=== PATIENT | male | born 1955 | race Caucasian/White ===

== ENCOUNTER → 2020-03-27 14:43 | Outpatient (CLI) | payer MEDICARE, SELFPAY ==
[2020-03-27 15:55] LABS: Hematocrit 44.1 % (40-54); Hemoglobin 15.2 g/dL (13.0-16.5)
[2020-03-31 09:07] LABS: Testosterone, Free 25.47 ng/dL (5.00-21.00)
[2020-03-31 09:33] LABS: Testosterone, % Free 3.41 % (1.50-4.20); Testosterone, Total 747 ng/dL (264-916)
== END ==
DX: E29.1 Testicular hypofunction (principal)
CPT/HCPCS: 36415; 84402; 84403; 85014; 85018

== ENCOUNTER → 2020-07-09 13:54 | Outpatient (CLI) | payer MEDICARE, SELFPAY ==
[2020-07-09 15:37] LABS: Hematocrit 45.3 % (40-54); Hemoglobin 15.6 g/dL (13.0-16.5)
[2020-07-14 08:08] LABS: Testosterone, Free 13.52 ng/dL (5.00-21.00)
[2020-07-14 15:18] LABS: Testosterone, % Free 2.57 % (1.50-4.20); Testosterone, Total 526 ng/dL (264-916)
== END ==
DX: E29.1 Testicular hypofunction (principal)
CPT/HCPCS: 36415; 84402; 84403; 85014; 85018

== ENCOUNTER → 2020-10-12 09:09 | Outpatient (CLI) | payer MEDICARE, SELFPAY ==
[2020-10-12 10:08] LABS: Hemoglobin 16.8 g/dL (13.0-16.5)
[2020-10-15 12:08] LABS: Testosterone, Free 28.56 ng/dL (5.00-21.00)
[2020-10-15 18:02] LABS: Testosterone, % Free 4.32 % (1.50-4.20); Testosterone, Total 661 ng/dL (264-916)
== END ==
DX: E29.1 Testicular hypofunction (principal)
CPT/HCPCS: 36415; 84402; 84403; 85014; 85018

== ENCOUNTER → 2021-02-15 09:11 | Outpatient (CLI) | payer MEDICARE, SELFPAY ==
[2021-02-15 09:46] LABS: Hematocrit 46.7 % (40-54)
[2021-02-15 10:27] LABS: Hemoglobin A1c 5.8 % (3.8-5.6)
[2021-02-15 10:33] LABS: PSA,Total - Annual Screen 1.98 ng/mL (0.00-4.00)
[2021-02-18 11:09] LABS: Testosterone, Free 23.64 ng/dL (5.00-21.00)
[2021-02-18 14:19] LABS: Testosterone, % Free 4.09 % (1.50-4.20); Testosterone, Total 578 ng/dL (264-916)
== END ==
DX: E29.1 Testicular hypofunction (principal); R73.09 Other abnormal glucose; Z12.5 Encounter for screening for malignant neoplasm of prostate
CPT/HCPCS: 36415; 83036; 84153; 84402; 84403; 85014; G0103

== ENCOUNTER → 2021-08-20 15:03 | Outpatient (CLI) | payer MEDICARE, SELFPAY ==
[2021-08-20 16:15] LABS: Hematocrit 46.2 % (40-54); Hemoglobin 16.2 g/dL (13.0-16.5)
[2021-08-25 11:09] LABS: Testosterone, Free 20.18 ng/dL (5.00-21.00)
[2021-08-25 12:31] LABS: Testosterone, % Free 4.17 % (1.50-4.20); Testosterone, Total 484 ng/dL (264-916)
== END ==
DX: E29.1 Testicular hypofunction (principal)
CPT/HCPCS: 36415; 84402; 84403; 85014; 85018

== ENCOUNTER → 2022-02-16 | Outpatient (CLI) | payer MEDICARE, SELFPAY ==
[2022-02-16 15:10] LABS: Hematocrit 45.8 % (40-54); Hemoglobin 15.8 g/dL (13.0-16.5)
[2022-02-26 14:09] LABS: Testosterone, Free 20.62 ng/dL (5.00-21.00)
[2022-02-27 11:26] LABS: Testosterone, % Free 3.37 % (1.50-4.20); Testosterone, Total 612 ng/dL (264-916)
== END | disposition home or self-care (01) ==
LOC: LAB 13:41
DX: E29.1 Testicular hypofunction (principal)
CPT/HCPCS: 36415; 84402; 84403; 85014; 85018

== ENCOUNTER → 2022-08-31 | Outpatient (CLI) | payer MEDICARE, SELFPAY ==
[2022-08-31 14:48] LABS: Hematocrit 45.6 % (40-54); Hemoglobin 15.7 g/dL (13.0-16.5)
[2022-08-31 15:23] LABS: PSA,Total - Annual Screen 2.68 ng/mL (0.00-4.00)
[2022-09-07 12:09] LABS: Testosterone, % Free 2.29 % (1.50-4.20); Testosterone, Total 524 ng/dL (264-916)
== END | disposition home or self-care (01) ==
DX: E29.1 Testicular hypofunction (principal); Z12.5 Encounter for screening for malignant neoplasm of prostate
CPT/HCPCS: 36415; 84153; 84402; 84403; 85014; 85018; G0103

== ENCOUNTER → 2023-03-08 | Outpatient (CLI) | payer MEDICARE, SELFPAY ==
[2023-03-08 15:54] LABS: Hematocrit 43.7 % (40-54); Hemoglobin 14.9 g/dL (13.0-16.5)
[2023-03-08 16:16] LABS: PSA,Total - Annual Screen 3.43 ng/mL (0.00-4.00)
[2023-03-13 12:08] LABS: Testosterone, % Free 3.59 % (1.50-4.20); Testosterone, Free 13.75 ng/dL (5.00-21.00); Testosterone, Total 383 ng/dL (264-916)
== END | disposition home or self-care (01) ==
DX: E29.1 Testicular hypofunction (principal); Z12.5 Encounter for screening for malignant neoplasm of prostate
CPT/HCPCS: 36415; 84153; 84402; 84403; 85014; 85018; G0103

== ENCOUNTER → 2024-05-29 | Outpatient (CLI) | payer MEDICARE, SELFPAY ==
[2024-05-29 16:46] LABS: Hematocrit 45.7 % (40-54); Hemoglobin 15.9 g/dL (13.0-16.5)
[2024-05-29 17:25] LABS: Estradiol 49.1 pg/mL
[2024-06-04 12:08] LABS: Testosterone, % Free 4.01 % (1.50-4.20); Testosterone, Free 22.86 ng/dL (5.00-21.00); Testosterone, Total 570 ng/dL (264-916)
== END | disposition home or self-care (01) ==
LOC: LAB 16:13
DX: E29.1 Testicular hypofunction (principal)
CPT/HCPCS: 36415; 82670; 84402; 84403; 85014; 85018

== ENCOUNTER → 2024-08-20 | Outpatient (CLI) | payer MEDICARE, SELFPAY ==
[2024-08-20] MEDS: Zaleplon 5 MG Capsule 10 MG PO (21:30)
== END | disposition home or self-care (01) ==
PROVIDERS: Referring Provider Nurse Practitioner Family; Visit Provider Nurse Practitioner Family
DX: G47.33 Obstructive sleep apnea (adult) (pediatric) (principal)
CPT/HCPCS: 95811

== ENCOUNTER → 2024-12-04 | Outpatient (CLI) | payer MEDICARE, SELFPAY ==
[2024-12-04 16:15] LABS: Hematocrit 44.3 % (40-54); Hemoglobin 16.0 g/dL (13.0-16.5)
[2024-12-04 17:05] LABS: PSA,Total - Annual Screen 2.31 ng/mL (0.02-4.00)
== END | disposition home or self-care (01) ==
LOC: LAB 15:42
DX: Z12.5 Encounter for screening for malignant neoplasm of prostate (principal); E29.1 Testicular hypofunction
CPT/HCPCS: 36415; 82670; 84153; 84403; 85014; 85018; G0103

== ENCOUNTER → 2025-01-17 | Outpatient (CLI) | payer MEDICARE, SELFPAY ==
--- NOTE | 2025-01-17 13:57 | ECHOD_ITS ---
Reason For Study Reason For Study: MURMUR Procedure This was a 2D Doppler, Color Flow transthoracic echocardiogram. Exam performed in department. Left Ventricle Normal LV size. Moderate concentric left ventricular hypertrophy. Left ventricular systolic function is normal. The left ventricular ejection fraction is 65 %. No regional wall motion abnormalities noted. Right Ventricle Normal RV size. Normal systolic function. Atria Normal left atrium. Normal right atrium. Mitral Valve Normal mitral valve. Tricuspid Valve Normal tricuspid valve. Mild (1+) tricuspid valve insufficiency. Pulmonary artery systolic pressure is 30 mmHg. Aortic Valve Trisinus/trileaflet aortic valve. Great Vessels Normal aortic root. The pulmonary artery is normal size. Inferior vena cava collapse with respiration. Pericardium/Pleural No pericardial effusion. MMode/2D Measurements & Calculations LVIDd: 4.6 cm IVSd: 1.5 cm CO(Teich): 3.9 l/min LVIDs: 3.2 cm LVPWd: 1.5 cm FS: 29.9 % Ao root diam: 3.5 cm LAV(MOD-bp): 36.4 ml LVAd ap4: 34.5 cm2 LAV(MOD-bp) Indexed: 16.5 ml/m2 LVLd ap4: 9.2 cm LAV(MOD-sp2): 37.8 ml EDV(MOD-sp4): 109.9 ml LAV(MOD-sp4): 35.9 ml EDV(sp4-el): 109.8 ml LVAs ap4: 18.3 cm2 LVLs ap4: 7.3 cm ESV(MOD-sp4): 40.1 ml ESV(sp4-el): 38.8 ml EF(MOD-sp4): 63.5 % EF(sp4-el): 64.7 % CO(MOD-sp4): 4.8 l/min SV(sp4-el): 71.0 ml SV(MOD-sp4): 69.8 ml LA A4 area: 14.6 cm2 SI(MOD-sp4): 31.5 ml/m2 LA dimension(2D): 4.1 cm RA A4 area: 21.1 cm2 Time Measurements MV dec time: 0.24 sec Doppler Measurements & Calculations MV E max laz: 85.3 cm/sec Lat Peak E' Laz: 8.9 cm/sec Med Peak E' Laz: 5.6 cm/sec MV A max laz: 100.3 cm/sec E/E' lat: 9.6 E/E' med: 15.2 MV E/A: 0.85 MV V2 max: 99.7 cm/sec Ao V2 max: 171.6 cm/sec MV max P.0 mmHg MV dec slope: 361.1 cm/sec2 Ao max P.8 mmHg MV V2 mean: 61.4 cm/sec Ao V2 mean: 114.9 cm/sec MV mean P.7 mmHg Ao mean P.1 mmHg MV V2 VTI: 35.4 cm Ao V2 VTI: 35.0 cm AV (velocity ratio): 0.79 LV V1 max: 129.7 cm/sec PA V2 max: 151.8 cm/sec TR max laz: 257.5 cm/sec LV V1 max P.7 mmHg PA V2 mean: 102.2 cm/sec TR max P.5 mmHg LV V1 mean P.2 mmHg LV V1 mean: 80.3 cm/sec LV V1 VTI: 27.5 cm ECHO/Echo Complete Interpretation Summary Normal LV size. Moderate concentric left ventricular hypertrophy. Left ventricular systolic function is normal. The left ventricular ejection fraction is 65 %. Pulmonary artery systolic pressure is 30 mmHg. Ordering Physician: XAVI HONG Referring Physician: XAVI HONG Performed By: Inés Avilez RCS
--- OUTSIDE RECORDS SUMMARY | 2025-01-17 17:16 | XMS RPT_ITS | CCD ---
Author Organization [facility] Care Team Providers Care Glass Silverer Name Role Phone Unavailable Primary Care Provider Xavi Mathias Primary Care Provider XAVI DE LA CRUZ Primary Care Unavailab EVETTE Thompson Attending EVETTE Floyd Admitting Unavailemerson e Dorothy (Ms), Jerson Primary Care Provider Unavaila ble Dorothy (Ms), [facility] Primary Care Provider Unavaila ble Dorothy, [facility] Primary Care Provider UnavailALO Angel Referring Unavailable TONY ALONZO Attending Provider TONY ALONZO Referring Provider [phone] XAVI DE LA CRUZ Primary Care Provider [phone] Sue Siegel Attending Provider Sue Siegel Referring Provider Care Physician, No Primary Primary Care Provider Unavailable Sue Siegel Attending Provider Care Physician, No Primary Referring Provider Un available TONY ALONZO Attending Provider TONY ALONZO Referring Provider [phone] DOROTHY, XAVI Attending Unavailable DORADO, XAVI Referring Unavailable DORADO, XAVI Attending Unavailable DORADO, XAVI Referring Unavailable DORADO, XAVI Attending Unavailable DORADO, XAVI Attending Unavailable DORADO, XAVI Attending Unavailable DORADO, XAVI Referring Unavailable DORADO, XAVI Attending Unavailable DORADO, XAVI Attending Unavailable Sue Mccauley Attending Unavailable Sue Mccauley Attending Unavailable Care Physician, No Primary Primary Care Unava ilable Care Physician, No Primary Referring Unava ilable Sue Mccauley Attending Unavailable Sue Mccauley Referring Unavailable Care Physician, No Primary Primary Care Unava ilable BIANCA, MOHAMMED Attending Unavailable BIANCA, [facility] Referring Unavailable Care Physician, No Primary Primary Care Unava ilable BIANCA, MOHAMMED Primary Care Unavailable BIANCA, MOHAMMED Attending Unavailable BIANCA, MOHAMMED Referring Unavailable BIANCA, MOHAMMED Attending Unavailable BIANCA, MOHAMMED Referring Unavailable BIANCA, MOHAMMED Primary Care Unavailable Medications Current Medications Medication Drug Class(es) Dates Sig (Normalized) Sig (Original) [id number] 200 actuat albuterol 0.09 mg/actuat metered dose inhaler (11 sources) beta2-Adrenergic Agonist Start: 10-05-2022 take 2 puff(s) by inhalation every six hours as needed albuterol HFA (PROAIR HFA) 90 mcg/actuation inhaler Indications: Bronchitis Inhale 2 Puffs as instructed every 6 hours as needed. 1 Each 10/05/2022 Active Start: 06-19-2020 take 1-2 puff(s) by inhalation four times daily as needed for wheezing albuterol HFA (PROVENTIL HFA) 90 mcg/actuation inhaler Inhale 1-2 Puffs as instructed four times daily as needed for Wheezing/Shortness of Breath. 18 g 06/19/2020 Active Comment on above: Inhale 1-2 Puffs as instructed four times daily as needed for Wheezing/Shortness of Breath. Inhale 2 Puffs as in structed every 6 hours as needed. amLODIPine 10 mg oral tablet (17 sources) Dihydropyridine Calcium Channel Mitchel Start: 07-10-19 25 take 1 tablet by mouth once daily Amlodipine 10 mg tablet Active 10 mg PO daily July 10, 2024 1:00am Start: 05-22-2020 amLODIPine (NO RVASC) 5 mg tablet 05/22/2020 Active AMLODIPINE BESYL ATE (AMLODIPINE ORAL) Take by mouth. Active AMLODIPINE BESYL ATE (AMLODIPINE ORAL) Take by mouth. 0 Active Comment on above: Take by mouth. aspirin 81 mg delayed release oral tablet (10 sources) Platelet Aggregation Inhibitor, Nonsteroidal Anti-inflammatory Drug Start: 07-10-2024 take 1 tablet by mouth once daily Aspirin 81 mg tablet,delayed release (DR/EC) Active 81 mg PO daily July 10, 2024 1:00am aspirin 81 mg ch ewable tablet Active budesonide 0.032 mg/actuat metered dose nasal spray (4 sources) Corticosteroid Start: 07-24-2024 take 2 spray(s) by mouth once daily budesonide (RHINOCORT AQ) 32 mcg/actuation nasal spray Indications: Acute cough Use 2 Sprays in each nostril once daily. Rinse mouth after use. 8.43 mL 07/24/2024 Active Start: 07-10-2024 take 1 capsule by mouth once daily in the morning Budesonide 3 mg capsule,delayed,extend.release Active 3 mg PO EVERY MORNING July 10, 2024 1:00am colestipol hydrochloride 1000 mg oral tablet (7 sources) Bile Acid Sequestrant Start: 03-28-2020 colestipol (COLESTID) 1 gram tablet 03/28/2020 Active dextromethorphan hydrobromide 1 mg/ml / guaiFENesin 20 mg/ml oral solution (1 source) Uncompetitive U-ubwmaq-T-aspart ate Receptor Antagonist, Sigma-1 Agonist Start: 07-24-2024 take 10 mL by mouth every four hours as needed Dextromethorphan-guaiF ENesin (ROBITUSSIN COUGH-CHEST RONALD DM) 5-100 mg/5 mL liqd Indications: Acute cough Take 10 mL by mouth every 4 hours as needed. 237 mL 07/24/2024 Active doxycycline monohydrate 100 mg oral capsule (1 source) Tetracycline-clas s Drug Start: 10-03-2022 End: 10-08-2022 take 1 capsule by mouth twice daily doxycycline monohydrate (MONODOX) 100 mg capsule Indications: Acute cough Take 1 capsule by mouth twice daily for 5 days. 10 capsule 0 10/03/2022 10/08/2022 Active Comment on above: Take 1 capsule by [facility] twice daily for 5 days. hydroCHLOROthiazide 25 mg oral tablet (10 sources) Thiazide Diuretic Start: 03-23-2020 take 1 tablet by mouth once daily in the morning Hydrochlorothiazide 25 mg tablet Active 25 mg PO EVERY MORNING July 10, 2024 1:00am losartan potassium 100 mg oral tablet (14 sources) Angiotensin 2 Receptor Mitchel Start: 03-23-2020 losartan (COZAAR) 100 mg tablet 03/23/2020 Active LOSARTAN POTASSI UM (LOSARTAN ORAL) Take by mouth. Active LOSARTAN POTASSI UM (LOSARTAN ORAL) Take by mouth. 0 Active Comment on above: Take by mouth. olmesartan medoxomil 40 mg oral tablet (3 sources) Angiotensin 2 Receptor Mitchel Start: 5 take 1 tablet by mouth once daily Olmesartan (Benicar) 40 mg tablet Active 40 mg PO daily July 10, 2024 1:00am rosuvastatin calcium 10 mg oral tablet (10 sources) HMG-CoA Reductase Inhibitor Start: 5 take 1 tablet by mouth once daily Rosuvastatin (Crestor) 10 mg tablet Active 10 mg PO daily July 10, 2024 1:00am ROSUVASTATIN OMAR CIUM (CRESTOR ORAL) Take by mouth. Active ROSUVASTATIN OMAR CIUM (CRESTOR ORAL) Take by mouth. 0 Active Comment on above: Take by mouth. 0.5 ml testosterone enanthate 200 mg/ml auto-injector (10 sources) Androgen Start: 07-10-2024 Testosterone Enanthate (Xyosted) 100 mg/0.5 mL auto-injector Active 100 mg SC EVERY WEEK July 10, 2024 1:00am Start: 05-25-2020 testosterone e nanthate (XYOSTED) 100 mg/0.5 mL AutoInjector 05/25/2020 Active Completed/Discontinued Medications Medication Drug Class(es) Dates Sig (Normalized) Sig (Original) benzonatate 100 mg oral capsule (7 sources) Non-narcotic Antitussive Start: 10-10-2022 End: 07-24-2024 take 2 capsules by mouth three times daily as needed benzonatate (TESSALON PERLE) 100 mg capsule Indications: Sinobronchitis Take 2 capsules by mouth three times a day as needed. 30 capsule 03/31/2023 07/24/2024 Discontinued Comment on above: Take 2 capsules by m outh three times daily as needed. Problems Problem Classification Problem Date Documented Date Episodic/Chronic Administrative/social admission (2 sources) General problem AND/OR complaint; Translations: [Persons encountering health services in other specified circumstances] 07-12-2024 Episodic Anxiety disorders (2 sources) Acute stress reaction; Translations: [Acute stress reaction] Onset: 01-17-2024 Chronic Coronary atherosclerosis and other heart disease (2 sources) Atherosclerotic heart disease of [place] coronary artery without angina pectoris; Translations: [Atherosclerotic heart disease of [place] coronary artery without angina pectoris] Onset: 10-01-2024 Chronic Disorders of lipid metabolism (2 sources) Pure hypercholesterolemia, unspecified; Translations: [Pure hypercholesterolemia, unspecified] Onset: 06-04-2023 Chronic Essential hypertension (15 sources) Essential hypertension; Translations: [Essential (primary) hypertension] Onset: 04-29-2024 06-19-2020 Chronic Heart valve disorders (2 sources) Cardiac murmur, unspecified; Translations: [Cardiac murmur, unspecified] Onset: 10-01-2024 Episodic Noninfectious gastroenteritis (7 sources) Lymphocytic colitis; Translations: [Other and unspecified noninfectious gastroenteritis and colitis] 06-19-2020 Chronic Other endocrine disorders (3 sources) Testicular hypofunction; Translations: [Testicular hypofunction] Onset: 01-17-2024 Chronic Other lower respiratory disease (2 sources) Cough; Translations: [Acute cough] Episodic Other lower respiratory disease (3 sources) Cough; Translations: [Acute cough] 10-03-2022 Episodic Other screening for suspected conditions (not mental disorders or infectious disease) (1 source) Encounter for screening for malignant neoplasm of prostate; Translations: [Encounter for screening for malignant neoplasm of prostate] Onset: 12-09-2024 Episodic Residual codes; unclassified (6 sources) Obstructive sleep apnea syndrome; Translations: [Obstructive sleep apnea (adult) (pediatric)] 07-12-2024 Chronic Residual codes; unclassified (3 sources) Obstructive sleep apnea (adult) (pediatric); Translations: [Obstructive sleep apnea (adult) (pediatric)] Onset: 01-17-2024 Chronic Residual codes; unclassified (2 sources) Other specified personal risk factors, not elsewhere classified; Translations: [Other specified personal risk factors, not elsewhere classified] Onset: 10-01-2024 Episodic Unclassified (4 sources) COVID-19; Translations: [COVID-19] Onset: 06-20-2020 06-20-2020 Unclassified (1 source) Acute cough; Translations: [Acute cough] Onset: 07-24-2024 Unclassified (2 sources) Precert needed for echo Onset: 01-01-2025 Results Test Name Value Interpretation Reference Range Facility Estradiolon 12-04-2024 ESTRADIOL 42.3 pg/mL Normal [facility] Comment on above: Result Comment: MALE S ADULT MALE: 10-40 pg/mL PREET STAGES MEAN AGE REFERENCE RANGES Stage I(>14 days and prepubertal) 7.1 years Undetectable-13 pg/mL Stage II 12.1 years Undetectable-16 pg/mL Stage III 13.6 years Undetectable-26 pg/mL Stage IV 15.1 years Undetectable-38 pg/mL Stage V 18 years 10-40 pg/mL Puberty onset (transition from Preet stage I to Preet Stage II) occurs for boys at a median age of 11.5 (+/- 2) years. For boys, there is no proven relationship between puberty onset and body weight or ethnic origin. Progression through Preet stages is variable. Preet stage V (adult) should be reached by age 18. Performed By: #### L 100.0600, L509.3001, L3300.1750, L501.9910 #### [facility] [address] [place], [address] HH, Hemoglobin AND Hematocri ton 12-04-2024 Hematocrit (Bld) [Volume fraction] 44.3 % Normal 40-54 [facility] Comment on above: Performed By: #### L 100.0600, L509.3001, L3300.1750, L501.9910 #### [facility] [address] [place], [address] Hemoglobin (Bld) [Mass/Vol] 16.0 g/dL Normal 13.0-16.5 [facility] Comment on above: Performed By: #### L 100.0600, L509.3001, L3300.1750, L501.9910 #### [facility] [address] [place], [address] Hematocrit Auto (Bld) [Volum e fraction]on 12-04-2024 Hematocrit (Bld) [Volume fraction] 44.3 % 40-54 [facility] Hemoglobin measurementon Hemoglobin (Bld) [Mass/Vol] 16.0 g/dL 13.0-16.5 [facility] L509.3001on 12-04-2024 Testosterone [Mass/Vol] 768.00 ng/dL High 300-720 [facility] Comment on above: Performed By: #### L 100.0600, L509.3001, L3300.1750, L501.9910 #### [facility] [address] [place], [address] Laboratory - Chemistry and C hemistry - challengeon 12-04-2024 Testosterone [Mass/Vol] 768.00 ng/dL High 300-720 [facility] PSA,Total - Annual Screenon 12-04-2024 PSA,TOT SCREEN 2.31 ng/mL Normal 0.02-4.00 [facility] Comment on above: Result Comment: This test was performed using the [employer] tPSA method. Measured values of a patient??sample can vary depending on the testing procedure used. PSA values determined on patient samples by different testing procedures cannot be used interchangeably. If there is a change in PSA assays while monitoring therapy, sequential testing should be performed to confirm baseline values. Performed By: #### L 100.0600, L509.3001, L3300.1750, L501.9910 #### [facility] [address] [place], [address] Serum or plasma estradiol me asurement after follitropin dose (mass/volume)on 12-04-2024 E2 post dose follitropin [Mass/Vol] 42.3 pg/mL [facility] Comment on above: MALES ADULT MALE: 10 -40 pg/mL PREET STAGES MEAN AGE REFERENCE RANGES Stage I(>14 days and prepubertal) 7.1 years Undetectable-13 pg/mL Stage II 12.1 years Undetectable-16 pg/mL Stage III 13.6 years Undetectable-26 pg/mL Stage IV 15.1 years Undetectable-38 pg/mL Stage V 18 years 10-40 pg/mL Puberty onset (transition from Preet stage I to Preet Stage II) occurs for boys at a median age of 11.5 (+/- 2) years. For boys, there is no proven relationship between puberty onset and body weight or ethnic origin. Progression through Preet stages is variable. Preet stage V (adult) should be reached by age 18. Pulmonary Visit Reporton Pulmonary Visit Report [facility] [address] [place] [address] OFFICE VISIT Date of Service: 11/12/24 MR#: [id number] Acct: [id number] Name: WAGNER HACKETT Rep #: [id number] : 1955 Provider: Sue Mccauley NP Age/Sex: 69/M Location: [facility] [place].[facility] Status: Signed Assessment and Plan Assessment and Plan (1) RAFAELA (obstructive sleep apnea): Status: Acute Plan: Sleep apnea is well-controlled on CPAP at 15 cm per titration study and compliance download. The patient does feel like he has insufficient air pressure at times in the middle the night. I do believe that this could be due to his air leak that is present. His supplies are old and need to be replaced. The patient does endorse that he does not wash his supplies. He uses a so clean machine. The daily upkeep of his mask, tubing, supplies were reviewed at length with patient today. I have recommended that he stop using a so clean machine with his current device and manually clean his supplies. I have recommended that he replace his old supplies at this time and if he continues to feel suboptimal with use of his device then I will consider increasing his pressure to 16 cm at that time. Follow-up in 12 months with compliance download. (2) Hypertension: Status: Chronic Qualifiers: Hypertension type: primary hypertension Qualified Code(s): I10 - Essential (primary) hypertension Plan: He continues to have suboptimal control of hypertension. I do not believe that this is due to suboptimal control of sleep apnea at this time as therapy is optimized. Continue to follow-up with PCP/cardiology. Plan Details Follow Up: 1 Year (LMR) HPI HPI Comments Details: Patient is a 69-year-old male who presents today to follow up for sleep apnea. He has a history of sleep apnea. He is ambulatory and currently on room air. He had previously been evaluated by [facility] and at his last office visit it was recommended that he obtain a split-night study. Their office visit note indicates that his baseline sleep study showed an AHI of 53.8 and titration went on to recommend CPAP at 16 cm. The office visit note indicated that he was eligible for a new device in December 2015. I do not have a baseline sleep study available at this sitting, it was not available from the [facility] associate group in which the patient has followed for primary care. The patient is using CPAP without significant air leak or snore. He is using a nasal mask and does report some oral dryness. There are no concerns about the air pressure. Sleep is refreshing for the most part. The patient is reporting good compliance. Daytime hypersomnia is improved. He denies morning headaches. He does take a daily nap. He just got new supplies. 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 He denies shortness of breath, cough, wheeze. He denies chest pain and chest tightness. He denies fever, chills, body aches. Documentation reviewed with patient today includes: Overnight titration PSG from August 20, 2024 shows the recommendation to begin CPAP at 15 cm. Compliance download from November 10, 2024 shows use of CPAP at 15 cm with a large air leak of 53.1 L/min. AHI is 0.7. The patient is 97% compliant with therapy, using the device 8 hours and 38 minutes nightly average. Intake Vital Signs 07/12/24 13:45 11/12/24 07:53 Height 5 ft 10 in 5 ft 10 in Weight: 235 lb BMI 33.7 BP 165/80 H Blood Pressure Location Lt radial Position Sitting Respiration 16 Pulse 58 L Pulse Source Monitor Temp 97.5 F L Temperature Source Temporal Artery Pulse Oximetry (%) 96 Oxygen Delivery Method room air Intake Visit Reasons: 10 WK FU DME Vendor: [employer] Accompanied by: Self Is patient in pain?: No Allergies No Known Allergies Allergy (Unverified 11/12/24 12:53) Medications ???Medication ???Instructions ???Recorded ???Confirmed ???Type amlodipine 10 mg tablet 10 mg PO QDAY 07/10/24 11/12/24 Hi story aspirin 81 mg tablet,delayed 81 mg PO QDAY 07/10/24 11/12/24 Hi story release budesonide 3 mg 3 mg PO QAM 07/10/24 11/12/24 Hist ory capsule,delayed,exten ded release hydrochlorothiazide 25 mg tablet 25 mg PO QAM 07/10/24 11/12/24 His tory olmesartan 40 mg tablet (Benicar) 40 mg PO QDAY 07/10/24 11/12/24 H istory rosuvastatin 10 mg tablet (Crestor) 10 mg PO QDAY 07/10/24 11/12/24 History testosterone enanthate 100 mg/0.5 100 mg subcut QWEEK 07/10/2410/21 History mL subcutaneous auto-injector (Xyosted) Have you fallen in the past year?: No [facility] Medical History Testicular hypofunction Coronary jakob (more content not included)... Normal [facility] B-TYPE NATRIURETIC PEPTIDEon 10-01-2024 Natriuretic peptide B (Bld) [Mass/Vol] 8 pg/mL Normal <=100 [facility] Comment on above: Order Comment: Atell ica IM BNP test results should not be used interchangeably with other car dumper's BNP assays, nor should [employer]ell[employer] IM BNP test results be used interchangeably with NT proBNP assay results. Location: Performed By: #### L [id number] ###Julieth NAVARRO ([id number]) [facility] ([facility]) [address] [address] BASIC METABOLIC PANELon 09-19 Anion gap [Moles/Vol] 12 mmol/L Normal 5-15 [facility] Comment on above: Order Comment: Locat ion: Performed By: #### L [id number], [id number], [id number], LAB15, LAB18, LAB20 ###Julieth NAVARRO ([id number]) [facility] ([facility]) [address] [address] B/C RATIO 20.0 Normal 10.0-28.6 [facility] Comment on above: Order Comment: Locat ion: Performed By: #### L AB116, [id number], [id number], LAB15, LAB18, LAB20 #### LILIANE NAVARRO ([id number]) [facility] ([facility]) [address] [facility], [address] [place] [address] Calcium [Mass/Vol] 9.7 mg/dL Normal 8.7-10.7 [facility] Comment on above: Order Comment: Locat ion: Performed By: #### L AB116, [id number], [id number], LAB15, LAB18, LAB20 #### LILIANE NAVARRO ([id number]) [facility] ([facility]) [address] [address] Chloride [Moles/Vol] 102 mmol/L Normal 100-110 [facility] Comment on above: Order Comment: Locat ion: Performed By: #### L AB116, [id number], [id number], LAB15, LAB18, LAB20 #### LILIANE NAVARRO ([id number]) [facility] ([facility]) [address] [address] CO2 [Moles/Vol] 27 mmol/L Normal 20-31 [facility] Comment on above: Order Comment: Locat ion: Performed By: #### L AB116, IGN195, KEV439, LAB15, LAB18, LAB20 #### LILIANE NAVARRO ([id number]) [facility] ([facility]) [address] [address] Creatinine [Mass/Vol] 1.2 mg/dL Normal 0.7-1.3 [facility] Comment on above: Order Comment: Locat ion: Performed By: #### L AB116, [id number], KLE671, LAB15, LAB18, LAB20 #### LILIANE NAVARRO ([id number]) [facility] ([facility]) [address] [address] GFR 65.1 mL/min/1.73m*2 Normal >=60.0 [facility] Comment on above: Order Comment: Locat ion: Performed By: #### L AB116, [id number], BFJ761, LAB15, LAB18, LAB20 #### LILIANE NAVARRO ([id number]) [facility] ([facility]) [address] [facility], [address] [address] Glucose [Mass/Vol] 111 mg/dL High 74-106 [facility] Comment on above: Order Comment: Locat ion: Performed By: #### L AB116, [id number], FNO711, LAB15, LAB18, LAB20 #### LILIANE NAVARRO ([id number]) [facility] ([facility]) [address] [place] [address] Potassium [Moles/Vol] 4.2 mmol/L Normal 3.5-5.1 [facility] Comment on above: Order Comment: Locat ion: Performed By: #### L AB116, [id number], YBM154, LAB15, LAB18, LAB20 #### LILIANE NAVARRO ([id number]) [facility] ([facility]) [address] [place] [address] Sodium [Moles/Vol] 141 mmol/L Normal 136-145 [facility] Comment on above: Order Comment: Locat ion: Performed By: #### L AB116, KVP161, ESC185, LAB15, LAB18, LAB20 #### LILIANE NAVARRO ([id number]) [facility] ([facility]) [address] [place] [address] Urea nitrogen [Mass/Vol] 24 mg/dL High 9-23 [facility] Comment on above: Order Comment: Locat ion: Performed By: #### L AB116, EHG212, AIW741, LAB15, LAB18, LAB20 #### LILIANE NAVARRO ([id number]) [facility] ([facility]) [address] [place] [address] CBC WITH AUTO DIFFERENTIALon 10-01-2024 BASO # 0.1 K CUMM Normal 0.0-0.2 [facility] Comment on above: Order Comment: Locat ion: Performed By: #### L [id number] #### LILIANE NAVARRO ([id number]) [facility] ([facility]) [address] [place] [address] Basophils/100 WBC (Bld) 0.7 % Normal 0.0-3.0 [facility] Comment on above: Order Comment: Locat ion: Performed By: #### L [id number] #### LILIANE NAVARRO ([id number]) [facility] ([facility]) [address] [place] [address] Eosinophils (Bld) [#/Vol] 0.07 10*3/uL Normal 0.00-0.40 [facility] Comment on above: Order Comment: Locat ion: Performed By: #### L [id number] #### LILIANE NAVARRO ([id number]) [facility] ([facility]) [address] [place] [address] Eosinophils/100 WBC (Bld) 1.0 % Normal 0.0-7.0 [facility] Comment on above: Order Comment: Locat ion: Performed By: #### L [id number] #### LILIANE NAVARRO ([id number]) [facility] ([facility]) [address] [place] [address] Erythrocyte distribution width (RBC) [Ratio] 11.9 % Normal 11.5-15.5 [facility] Comment on above: Order Comment: Locat ion: Performed By: #### L [id number] #### LILIANE NAVARRO ([id number]) [facility] ([facility]) [address] [place] [address] Hematocrit (Bld) [Volume fraction] 46.8 % Normal 42.0-52.0 [facility] Comment on above: Order Comment: Locat ion: Performed By: #### L [id number] #### LILIANE NAVARRO ([id number]) [facility] ([facility]) [address] [place] [address] Hemoglobin (Bld) [Mass/Vol] 16.3 g/dL Normal 13.5-18.0 [facility] Comment on above: Order Comment: Locat ion: Performed By: #### L [id number] #### LILIANE NAVARRO ([id number]) [facility] ([facility]) [address] [address] IMMGRN# 0.0 K CUMM Normal 0.0-0.3 [facility] Comment on above: Order Comment: Locat ion: Performed By: #### L [id number] #### LILIANE NAVARRO ([id number]) [facility] ([facility]) [address] [address] IMMGRN% 0.1 % Normal 0.0-3.0 [facility] Comment on above: Order Comment: Locat ion: Performed By: #### L [id number] #### LILIANE NAVARRO ([id number]) [facility] ([facility]) [address] [place] [address] LYMPH # 2.3 K CUMM Normal 0.7-4.5 [facility] Comment on above: Order Comment: Locat ion: Performed By: #### L [id number] #### LILIANE NAVARRO ([id number]) [facility] ([facility]) [address] [place] [address] Lymphocytes/100 WBC (Bld) 34.3 % Normal 14.0-46.0 [facility] Comment on above: Order Comment: Locat ion: Performed By: #### L [id number] #### LILIANE NAVARRO ([id number]) [facility] ([facility]) [address] [place] [address] MCH (RBC) [Entitic mass] 32.2 pg High 27.0-31.0 [facility] Comment on above: Order Comment: Locat ion: Performed By: #### L [id number] #### LILIANE NAVARRO ([id number]) [facility] ([facility]) [address] [place] [address] MCHC (RBC) [Mass/Vol] 34.8 g/dL Normal 32.0-36.0 [facility] Comment on above: Order Comment: Locat ion: Performed By: #### L [id number] #### LILIANE NAVARRO ([id number]) [facility] ([facility]) [address] [address] MCV (RBC) [Entitic vol] 92.5 fL Normal 78.0-100.0 [facility] Comment on above: Order Comment: Locat ion: Performed By: #### L [id number] #### LILIANE NAVARRO ([id number]) [facility] ([facility]) [address] [place] [address] MONO # 0.6 K CUMM Normal 0.1-1.0 [facility] Comment on above: Order Comment: Locat ion: Performed By: #### L [id number] #### LILIANE NAVARRO ([id number]) [facility] ([facility]) [address] [place] [address] Monocytes/100 WBC (Bld) 8.8 % Normal 4.0-13.0 [facility] Comment on above: Order Comment: Locat ion: Performed By: #### L [id number] #### LILIANE NAVARRO ([id number]) [facility] ([facility]) [address] [place] [address] MOIRA # 3.7 K CUMM Normal 1.8-7.8 [facility] Comment on above: Order Comment: Locat ion: Performed By: #### L [id number] #### LILIANE NAVARRO ([id number]) [facility] ([facility]) [address] [place] [address] Neutrophils/100 WBC (Bld) 55.1 % Normal 40.0-74.0 [facility] Comment on above: Order Comment: Locat ion: Performed By: #### L [id number] #### LILIANE NAVARRO ([id number]) [facility] ([facility]) [address] [place] [address] Nucleated RBC/100 WBC (Bld) [Ratio] 0.0 % Normal 0.0-0.9 [facility] Comment on above: Order Comment: Locat ion: Performed By: #### L [id number] #### LILIANE NAVARRO ([id number]) [facility] ([facility]) [address] [facility], [address] [place] [address] Platelet mean volume (Bld) [Entitic vol] 9.9 fL Normal 8.9-12.6 [facility] Comment on above: Order Comment: Locat ion: Performed By: #### L [id number] #### LILIANE NAVARRO ([id number]) [facility] ([facility]) [address] [facility], [address] [address] PLT 178 K CUMM Normal 130-400 [facility] Comment on above: Order Comment: Locat ion: Performed By: #### L [id number] #### LILIANE NAVARRO ([id number]) [facility] ([facility]) [address] [facility], [address] [address] RBC 5.1 M CUMM Normal 4.2-5.8 [facility] Comment on above: Order Comment: Locat ion: Performed By: #### L [id number] #### LILIANE NAVARRO ([id number]) [facility] ([facility]) [address] [facility], [address] [address] WBC 6.7 K CUMM Normal 3.8-10.6 [facility] Comment on above: Order Comment: Locat ion: Performed By: #### L [id number] #### LILIANE NAVARRO ([id number]) [facility] ([facility]) [address] [address] ESTRADIOLon 10-01-2024 ESTRADIOL 73.5 pg/mL Normal [facility] Comment on above: Order Comment: Locat ion: Result Comment: Male ND-39.8 pg/ml Follicular phase 19.5-144.2 pg/ml Mid-cycle 63.9-356.7 pg/ml Luteal phase 55.8-214.2 pg/ml PostmenopausalFemale ND-32.2 pg/ml Performed By: #### L [id number], [id number], EIM039, LAB15, LAB18, LAB20 #### LILIANE NAVARRO ([id number]) [facility] ([facility]) [address] [address] HEPATIC PANELon 10-01-2024 Albumin [Mass/Vol] 5.0 g/dL High 3.2-4.8 [facility] Comment on above: Order Comment: Locat ion: Performed By: #### L AB116, DKY399, BQP185, LAB15, LAB18, LAB20 #### LILIANE NAVARRO ([id number]) [facility] ([facility]) [address] [place] [address] ALP [Catalytic activity/Vol] 58 U/L Normal 40-127 [facility] Comment on above: Order Comment: Locat ion: Performed By: #### L AB116, SIL660, FMJ912, LAB15, LAB18, LAB20 #### LILIANE NAVARRO ([id number]) [facility] ([facility]) [address] [place] [address] ALT [Catalytic activity/Vol] 74 U/L High 10-49 [facility] Comment on above: Order Comment: Locat ion: Performed By: #### L AB116, XFQ411, JBY957, LAB15, LAB18, LAB20 #### LILIANE NAVARRO ([id number]) [facility] ([facility]) [address] [place] [address] AST [Catalytic activity/Vol] 81 U/L High <=34 [facility] Comment on above: Order Comment: Locat ion: Performed By: #### L AB116, GMV091, GYZ560, LAB15, LAB18, LAB20 ###Julieth NAVARRO ([id number]) [facility] ([facility]) [address] [place] [address] BILI (INDIRECT) 0.5 mg/dL Normal 0.0-1.1 [facility] Comment on above: Order Comment: Locat ion: Performed By: #### L AB116, MVF047, TXO056, LAB15, LAB18, LAB20 #### LILIANE NAVARRO ([id number]) [facility] ([facility]) [address] [place] [address] Bilirubin [Mass/Vol] 0.7 mg/dL Normal 0.3-1.2 [facility] Comment on above: Order Comment: Locat ion: Performed By: #### L AB116, CIV196, XDW767, LAB15, LAB18, LAB20 #### LILIANE NAVARRO ([id number]) [facility] ([facility]) [address] [place] [address] Bilirubin.direct [Mass/Vol] 0.2 mg/dL Normal <=0.4 [facility] Comment on above: Order Comment: Locat ion: Performed By: #### L AB116, KVE543, SMU912, LAB15, LAB18, LAB20 #### LILIANE NAVARRO ([id number]) [facility] ([facility]) [address] [place] [address] Protein [Mass/Vol] 7.4 g/dL Normal 5.7-8.2 [facility] Comment on above: Order Comment: Locat ion: Performed By: #### L AB116, ZHO879, CVG030, LAB15, LAB18, LAB20 #### LILIANE NAVARRO ([id number]) [facility] ([facility]) [address] [place] [address] LIPID PANELon 10-01-2024 CHOL/HDL RATIO 3.8 Normal <=4.0 [facility] Comment on above: Order Comment: Locat ion: Performed By: #### L AB116, IWC483, RYW614, LAB15, LAB18, LAB20 ###Julieth NAVARRO ([id number]) [facility] ([facility]) [address] [place] [address] Cholesterol [Mass/Vol] 177 mg/dL Normal <=200 [facility] Comment on above: Order Comment: Locat ion: Performed By: #### L AB116, TZW794, JOB905, LAB15, LAB18, LAB20 #### LILIANE NAVARRO ([id number]) [facility] ([facility]) [address] [address] Cholesterol in HDL [Mass/Vol] 47 mg/dL Low >60 [facility] Comment on above: Order Comment: Locat ion: Performed By: #### L AB116, PDK921, XPA487, LAB15, LAB18, LAB20 #### LILIANE NAVARRO ([id number]) [facility] ([facility]) [address] [place] [address] Cholesterol in LDL [Mass/Vol] 68 mg/dL Normal <=130 [facility] Comment on above: Order Comment: Locat ion: Performed By: #### L AB116, NSP521, FUT027, LAB15, LAB18, LAB20 #### LILIANE NAVARRO ([id number]) [facility] ([facility]) [address] [place] [address] NON-HDL CHOL 130 Normal [facility] Comment on above: Order Comment: Locat ion: Result Comment: LDL and Non-HDL goal dependent upon individual risk Performed By: #### L AB116, ERY836, TMG818, LAB15, LAB18, LAB20 #### LILIANE NAVARRO ([id number]) [facility] ([facility]) [address] [place] [address] Triglyceride [Mass/Vol] 310 mg/dL High <=150 [facility] Comment on above: Order Comment: Locat ion: Performed By: #### L AB116, BWA221, LSF264, LAB15, LAB18, LAB20 #### LILIANE NAVARRO ([id number]) [facility] ([facility]) [address] [place] [address] VLDL-CALC 62 mg/dl High 0-30 [facility] Comment on above: Order Comment: Locat ion: Performed By: #### L AB116, WZR111, SRW648, LAB15, LAB18, LAB20 #### LILIANE NAVARRO ([id number]) [facility] ([facility]) [address] [facility], [address] [address] TESTOSTERONE, TOTAL (IMMUNOA SSAY)on 10-01-2024 Testosterone [Mass/Vol] 842.6 ng/dL High 187.8-684.2 [facility] Comment on above: Order Comment: Locat ion: Result Comment: Fema le Normal Range - 0.0-35.9 ng/dL Male Normal Range - 187.8-684.2 ng/dL Performed By: #### L AB116, JCO345, LMX171, LAB15, LAB18, LAB20 ###Julieth NAVARRO ([id number]) [facility] ([facility]) [address] [place] [address] URINE, RANDOM, ALBUMIN/CREAT ININEon 10-01-2024 Albumin DL <= 20 mg/L (U) [Mass/Vol] 0.6 mg/dL Normal 0.0-1.6 [facility] Comment on above: Order Comment: Locat ion: Performed By: #### L [id number] #### LILIANE NAVARRO ([id number]) [facility] ([facility]) [address] [facility], [address] [address] Creatinine (U) [Mass/Vol] 124.6 mg/dL Normal 22.0-328.0 [facility] Comment on above: Order Comment: Locat ion: Performed By: #### L AB689 #### LILIANE NAVARRO ([id number]) [facility] ([facility]) [address] [place] [address] URINE MICROALB/ CREAT RATIO 4.8 mcg/mg creat Normal 0.0-29.9 [facility] Comment on above: Order Comment: Locat ion: Result Comment: The ADA (Diabetes Care 26:s94-s98,2003) defines abnormalities in albumin excretion as follows: Category Result (mcg/mg creatinine) Normal <30 Microalbuminuria 30-299 Clinical Albuminuria > or =300 The ADA recommends that at least two of three specimens collected within a 3-6 month period be abnormal before considering a patient to be within a diagnostics category. Performed By: #### L AB689 #### LILIANE NAVARRO ([id number]) [facility] ([facility]) [address] [facility], [address] [place] [address] OVanurag 07-24-2024 CN Office Visit (UCWSTR ) WAGNER HACKETT ([id number]) 1955 M Date Time Provider Department 07/24/24 10:30 AM ALO HURLEY [facility] During your visit today, we recorded the following information about you: Temperature Pulse Respiration Blood pressure 100.4 degrees 94/minute 16/minute 170/100 Weight 107.6 kg Alo Hurley APRN.VENEER SANDER 07/24/2024 11:06 AM Signed CC: Patient presents with: Cough: Cough and congestion x 4 days HPI: Wagner Hackett is a 69 year old male who presents to the office with complaint of chest congestion, head congestion, and cough, nonproductive for 4 days. Symptoms are staying the same. Associated symptoms includes fever and dyspnea. Denies nausea, vomiting , and diarrhea. Treatments tried include nothing so far. with no relief of symptoms. Sick contacts: unknown. History of asthma, frequent episodes of bronchitis, chronic bronchitis, bronchiectasis or COPD: No Smoker: No Seasonal/environmenta l allergies: No The ROS is otherwise negative. The patient's pmh, medications, allergies, and past visits are reviewed. PHYSICAL EXAM: BP 170/100 Pulse 94 Temp (!) 38 ?C (100.4 ?F) (Tympanic) Resp 16 Wt 107.6 kg (237 lb 3.4 oz) SpO2 95% General appearance: alert, cooperative, pleasant, in no acute distress Head: Normocephalic Eyes: EOM's intact, conjunctiva pink and moist, no icterus, sclera white, non-injected Ears: Right ear: External ear/canal- Normal, TM - clear with good landmarks. Left ear: External ear/canal- Normal, TM - clear with good landmarks Oropharynx:moist without lesions, No erythema, exudates or tonsillar hypertrophy. Heart: Negative. RRR without obvious murmur, gallop, or rubs. No ectopy. Lungs: wheezing right lower lobe PAST MEDICAL HISTORY Diagnosis Date Essential hypertension Lymphocytic colitis No past surgical history on file. ALLERGIES Patient has no known allergies. MEDICATIONS benzonatate (TESSALON PERLE) 100 mg capsule Take 2 capsules by mouth three times a day as needed. (Patient not taking: Reported on 07/24/2024) benzonatate (TESSALON PERLE) 100 mg capsule Take 2 capsules by mouth three times daily as needed. (Patient not taking: Reported on 03/26/2023) albuterol HFA (PROAIR HFA) 90 mcg/actuation inhaler Inhale 2 Puffs as instructed every 6 hours as needed. albuterol HFA (PROVENTIL HFA) 90 mcg/actuation inhaler Inhale 1-2 Puffs as instructed four times daily as needed for Wheezing/Shortness of Breath. (Patient not taking: Reported on 10/03/2022) aspirin 81 mg chewable tablet colestipol (COLESTID) 1 gram tablet (Patient not taking: Reported on 03/26/2023) hydroCHLOROthiazide (HYDRODIURIL, ESIDRIX) 25 mg tablet testosterone enanthate (XYOSTED) 100 mg/0.5 mL AutoInjector losartan (COZAAR) 100 mg tablet amLODIPine (NORVASC) 5 mg tablet ROSUVASTATIN CALCIUM (CRESTOR ORAL) Take by mouth. LOSARTAN POTASSIUM (LOSARTAN ORAL) Take by mouth. (Patient not taking: Reported on 03/26/2023) AMLODIPINE BESYLATE (AMLODIPINE ORAL) Take by mouth. (Patient not taking: Reported on 03/26/2023) No family history on file. Social History Tobacco Use Smoking status: Never Smokeless tobacco: Never ASSESSMENT/PLAN: 1. Acute cough - ICD9: 786.2, ICD10: R05.1 - XR CHEST 2V FRONTAL/LAT * * * * Physician Interpretation * * * * EXAMINATION: CHEST RADIOGRAPH (2 VIEW FRONTAL AND LATERAL) CLINICAL HISTORY: Acute cough MQ: XC2_6 EXAM DATE/TIME: 07/24/2024 10:50 AM COMPARISON: Chest x-ray on 03/31/2023 RESULT: Lines, tubes, and devices: None. Lungs and pleura: No consolidation. No lung mass. No pleural effusion. No pneumothorax. Cardiomediastinal silhouette: Stable cardiac silhouette, with tortuosity of the thoracic aorta. Bones and soft tissues: There are degenerative changes in the spine. IMPRESSION IMPRESSION: No acute radiographic abnormality. Peanut Roaster: GEORGE Transcribe Date/Time: Jul 24 2024 10:55A Dictated by : JOURDAN TRENT MD - BUDESONIDE 32 MCG/ACTUATION NASAL SPRAY - DEXTROMETHORPHAN-GUAI FENESIN 5 MG-100 MG/5 ML ORAL LIQUID Prescription instructions reviewed with patient as applicable. Potential red flag symptoms discussed with the patient. Reviewed appropriate action plan to take if red flag symptoms occur. Patient agreeable to treatment plan. Alo Hurley APRN.VENEER SANDER Allergies As of Date: 07/24/2024 (No Known Allergies) Date Reviewed: 07/24/2024 Reviewed by: Della Martinez LPN - Fully Assessed Reason for Visit: Cough [28] Cmt: Cough and congestion x 4 days Primary Visit Diagnosis:Acute cough [R05.1] Order(s):XR CHEST 2V FRONTAL/LAT [[id number]] Order #: [id number] FUTURE budesonide (RHINOCORT AQ) 32 mcg/actuation nasal sprayUse 2 Sprays in each nostril once daily. Rinse mouth after use.Disp: 8.43 mLRfl: 0 Dextromethorphan-guai FENesin (ROBITUSSIN COUGH-CHEST RONALD DM) 5-100 mg/5 mL liqd (more content not included)... Normal [facility] XR CHEST 2V FRONTAL/LATon XR CHEST 2V FRONTAL/LAT * * *Final Report* * * DATE OF EXAM: Jul 24 2024 10:50AM WOX [id number] - XR CHEST 2V FRONTAL/LAT / PROCEDURE REASON: Acute cough * * * * Physician Interpretation * * * * EXAMINATION: CHEST RADIOGRAPH (2 VIEW FRONTAL and LATERAL) CLINICAL HISTORY: Acute cough MQ: XC2_6 EXAM DATE/TIME: 07/24/2024 10:50 AM COMPARISON: Chest x-ray on 03/31/2023 RESULT: Lines, tubes, and devices: None. Lungs and pleura: No consolidation. No lung mass. No pleural effusion. No pneumothorax. Cardiomediastinal silhouette: Stable cardiac silhouette, with tortuosity of the thoracic aorta. Bones and soft tissues: There are degenerative changes in the spine. IMPRESSION: No acute radiographic abnormality. Peanut Roaster: GEORGE Transcribe Date/Time: Jul 24 2024 10:55A Dictated by : JOURDAN TRENT MD This examination was interpreted and the report reviewed and electronically signed by: JOURDAN TRENT MD on Jul 24 2024 10:56AM EST [id number] N Normal [facility] XR Chest PA and Lateralon IMPRESSION: No acute radiographic abnormality. Peanut Roaster: [facility] Transcribe Date/Time: Jul 24 2024 10:55A Dictated by : JOURDAN TRENT MD This examination was interpreted and the report reviewed and electronically signed by: JOURDAN TRENT MD on Jul 24 2024 10:56AM EST DIVISION OF RADIOLOGY * * *Final Report* * * DATE OF EXAM: Jul 24 2024 10:50AM WOX [id number] - XR CHEST 2V FRONTAL/LAT / PROCEDURE REASON: Acute cough * * * * Physician Interpretation * * * * EXAMINATION: CHEST RADIOGRAPH (2 VIEW FRONTAL & LATERAL) CLINICAL HISTORY: Acute cough MQ: XC2_6 EXAM DATE/TIME: 07/24/2024 10:50 AM COMPARISON: Chest x-ray on 03/31/2023 RESULT: Lines, tubes, and devices: None. Lungs and pleura: No consolidation. No lung mass. No pleural effusion. No pneumothorax. Cardiomediastinal silhouette: Stable cardiac silhouette, with tortuosity of the thoracic aorta. Bones and soft tissues: There are degenerative changes in the spine. DIVISION OF RADIOLOGY Provider, [facility] - 07/24/2024 * * *Final Report* * * DATE OF EXAM: Jul 24 2024 10:50AM WOX [id number] - XR CHEST 2V FRONTAL/LAT / PROCEDURE REASON: Acute cough * * * * Physician Interpretation * * * * EXAMINATION: CHEST RADIOGRAPH (2 VIEW FRONTAL & LATERAL) CLINICAL HISTORY: Acute cough MQ: XC2_6 EXAM DATE/TIME: 07/24/2024 10:50 AM COMPARISON: Chest x-ray on 03/31/2023 RESULT: Lines, tubes, and devices: None. Lungs and pleura: No consolidation. No lung mass. No pleural effusion. No pneumothorax. Cardiomediastinal silhouette: Stable cardiac silhouette, with tortuosity of the thoracic aorta. Bones and soft tissues: There are degenerative changes in the spine. IMPRESSION IMPRESSION: No acute radiographic abnormality. Peanut Roaster: [facility] Transcribe Date/Time: Jul 24 2024 10:55A Dictated by : JOURDAN TRENT MD This examination was interpreted and the report reviewed and electronically signed by: JOURDAN TRENT MD on Jul 24 2024 10:56AM EST [facility] Radiology Study observation (narrative) [facility] XR Chest PA and LateralOrder ed By: [facility] Provider on 07-24-2024 [facility] ic Pulmonary Visit Reporton Pulmonary Visit Report [facility] [address] [place] [address] OFFICE VISIT Date of Service: 07/12/24 MR#: [id number] Acct: [id number] Name: WAGNER HACKETT Rep #: [id number] : 1955 Provider: Sue Mccauley NP Age/Sex: 69/M Location: [facility] [place].PMW Status: Signed Assessment and Plan Assessment and Plan (1) RAFAELA (obstructive sleep apnea): Status: Acute Plan: I am concerned that he is failing his current treatment of sleep apnea. He has sub optimal control of hypertension. He is experiencing oral dryness. I would like for his baseline PSG to be obtained from [facility]. I have recommended a retitration study prior to ordering a new device. The patient is willing to undergo this study. He is concerned however that he may not fall asleep for the night of sleep testing. I have offered him Sonata 10 mg to be used for the night of sleep study. The inorganic chemical technician should perform a mini neuro evaluation prior to releasing patient in the morning. The patient would like to be [facility] an alternative [facility], once his sleep study is completed. I will then be able to recommend specific device and settings and the order should be sent accordingly. I plan to obtain a compliance download on follow-up which should be 31 to 90 days after set up. (2) Hypertension: Status: Chronic Qualifiers: Hypertension type: primary hypertension Qualified Code(s): I10 - Essential (primary) hypertension Plan: I have reviewed the correlation between suboptimal control of sleep apnea and cardiovascular disease. The patient understands how this can specifically affect his blood pressure. He is motivated to pursue further testing and set up with a new device to adequately treat sleep apnea. (3) Sleep concern: Orders: Orders Polysomnography with PAP Today G47.33 - Obstructive sleep apnea (adult) (pediatric) Plan Details Follow Up: 10-12 weeks (LMR) HPI HPI Comments Details: Patient is a 69-year-old male who presents today for evaluation for sleep. He has a history of sleep apnea. He is ambulatory and currently on room air. He had previously been evaluated by [facility] and at his last office visit it was recommended that he obtain a split-night study. Their office visit note indicates that his baseline sleep study showed an AHI of 53.8 and titration went on to recommend CPAP at 16 cm. The office visit note indicated that he was eligible for a new device in December 2015. I do not have a baseline sleep study available at this sitting, it was not available from the [facility] associate group in which the patient has followed for primary care. The patient has had suboptimal control of hypertension recently and his PCP asked for him to be evaluated further for sleep apnea. The patient is using CPAP 16 cm without significant air leak or snore. He is using a nasal mask and does report some oral dryness. There are no concerns about the air pressure. Sleep is refreshing for the most part. The patient is reporting good compliance. Daytime hypersomnia is improved. He denies morning headaches. He does take a daily nap. ESS 7. Smoking occasional cigar, 2 per month. 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 He denies shortness of breath, cough, wheeze. He denies chest pain and chest tightness. He denies fever, chills, body aches. Unfortunately no data could be obtained from his current device. Intake Vital Signs 07/12/24 13:45 07/12/24 13:51 Height 5 ft 10 in Weight: 232 lb BMI 33.3 BP 171/84 H 160/85 H Blood Pressure Location Rt brachial Lt brachial Position Sitting Sitting Respiration 20 H Pulse 64 Pulse Source Monitor Temp 97.2 F L Temperature Source Temporal Artery Pulse Oximetry (%) 96 Oxygen Delivery Method room air Intake Visit Reasons: Sleep problems Labor Law Professor Required: No DME Vendor: [facility] [facility] Accompanied by: Self Is patient in pain?: No Allergies No Known Allergies Allergy (Unverified 07/12/24 13:47) Medications ???Medication ???Instructions ???Recorded ???Confirmed ???Type amlodipine 10 mg tablet 10 mg PO QDAY 07/10/24 07/12/24 Hi story aspirin 81 mg tablet,delayed 81 mg PO QDAY 07/10/24 07/12/24 Hi story release budesonide 3 mg 3 mg PO QAM 07/10/24 07/12/24 Hist ory capsule,delayed,exten ded release hydrochlorothiazide 25 mg tablet 25 mg PO QAM 07/10/24 07/12/24 His tory olmesartan 40 mg tablet (Benicar) 40 mg PO QDAY 07/10/24 07/12/24 H istory rosuvastatin 10 mg tablet (Crestor) 10 mg PO QDAY 07/10/24 07/12/24 History testosterone enanthate 100 mg/0.5 100 mg subcut QWEEK 07/10/2406/23 History mL sub (more content not included)... Normal [facility] Testosterone, Total / Freeon 06-04-2024 TESTOSTER,FREE 22.86 ng/dL Abnormal 5.00-21.00 [facility] Comment on above: Order Comment: N Performed By: #### L 3300.1750, L3100.5310, L100.0600 #### [facility] [address] [place], [address] TESTOSTER,TOTAL 570 ng/dL Normal 264-916 [facility] Comment on above: Order Comment: N Result Comment: Adul t male reference interval is based on a population of healthy nonobese males (BMI <30) between 19 and 39 years old. laxmi Olson.al. JCEM 2017,102;3334-9051. PMID: [id number]. Performed By: #### L 3300.1750, L3100.5310, L100.0600 #### [facility] [address] [place], [place], [address] TESTOSTERONE,%F 4.01 Normal 1.50-4.20 [facility] Comment on above: Order Comment: N Result Comment: Perf ormed at: - [facility] [address] [id number] Geographic Information Systems Analyst: Ayo Gao PhD, Phone: [phone] Performed at: - [facility] [address] [id number] Geographic Information Systems Analyst: Tameka Arias MD, Phone: [phone] Performed By: #### L 3300.1750, [id number], L100.0600 #### [facility] [address] [place], [place], [id number] Estradiolon 05-29-2024 ESTRADIOL 49.1 pg/mL Normal [facility] Comment on above: Result Comment: NORM AL REFERENCE RANGES FEMALE FOLLICULAR 21.4 - 164.8 pg/mL MID-CYCLE PEAK 49.9 - 367.2 pg/mL LUTEAL 40.2 - 259.0 pg/mL POST-MENOPAUSAL ON MHT <11.0 - 462.1 pg/mL NOT ON MHT <11.0 - 58.3 pg/mL MALE <11.0 - 52.5 pg/mL NOTE: [employer] HAS CONFIRMED THE DRUG FULVETRANT (FASLODEX) MAY CAUSE FALSELY ELEVATED ESTRADIOL RESULTS WHEN USING THIS TEST METHOD. IF PATIENT IS TAKING FULVESTRANT AN ALTERNATIVE METHOD SHOULD BE USED TO DETERMINE ESTRADIOL CONCENTRATION. Performed By: #### L 3300.1750, L3100.5310, L100.0600 #### [facility] [address] [place], [place], [address] Estradiol measurementon Estradiol (E2) Level 49.1 pg/mL [facility] Comment on above: NORMAL REFERENCE RAN GES FEMALE FOLLICULAR 21.4 - 164.8 pg/mL MID-CYCLE PEAK 49.9 - 367.2 pg/mL LUTEAL 40.2 - 259.0 pg/mL POST-MENOPAUSAL ON MHT <11.0 - 462.1 pg/mL NOT ON MHT <11.0 - 58.3 pg/mL MALE <11.0 - 52.5 pg/mL NOTE:[employer] HAS CONFIRMED THE DRUG FULVETRANT (FASLODEX) MAY CAUSE FALSELY ELEVATED ESTRADIOL RESULTS WHEN USING THIS TEST METHOD. IF PATIENT IS TAKING FULVESTRANT AN ALTERNATIVE METHOD SHOULD BE USED TO DETERMINE ESTRADIOL CONCENTRATION. HH, Hemoglobin AND Hematocri ton 05-29-2024 Hematocrit (Bld) [Volume fraction] 45.7 % Normal 40-54 [facility] Comment on above: Performed By: #### L 3300.1750, L3100.5310, L100.0600 #### [facility] [address] [place], [address] Hemoglobin (Bld) [Mass/Vol] 15.9 g/dL Normal 13.0-16.5 [facility] Comment on above: Performed By: #### L 3300.1750, L3100.5310, L100.0600 #### [facility] [address] [place], [address] Hematocrit Auto (Bld) [Volum e fraction]on 05-29-2024 Hematocrit (Bld) [Volume fraction] 45.7 % 40-54 [facility] Hemoglobin measurementon Hemoglobin (Bld) [Mass/Vol] 15.9 g/dL 13.0-16.5 [facility] Testosterone Free [Mass/Vol] on 05-29-2024 Free Testosterone 22.86 ng/dL High 5.00-21.00 [facility] Testosterone Free/Testostero ne.total [Mass fraction]on 05-29-2024 Percent Free Testosterone 4.01 % 1.50-4.20 [facility] Comment on above: Performed at: [facility] [address] [id number] Director: Ayo Gao PhD, Phone: [phone] at: [address], [place], [place] [id number] Director: Tameka Arias MD, Phone: [phone] Testosterone, totalon 2024 Testosterone [Mass/Vol] 570 ng/dL 264-916 [facility] Comment on above: Adult male reference interval is based on a population ofhealthy nonobese males (BMI <30) between 19 and 39 yearsold. laxmi Olson.al. JCEM 2017,102;2474-8159. PMID:[id number]. XR Ribs - right Views and Ch est PAon 03-31-2023 IMPRESSION: Right ninth rib fracture. Peanut Roaster: GEORGE Transcribe Date/Time: Mar 31 2023 10:58A Dictated by : JOURDAN TRENT MD This examination was interpreted and the report reviewed and electronically signed by: JOURDAN TRENT MD on Mar 31 2023 11:03AM EST DIVISION OF RADIOLOGY * * *Final Report* * * DATE OF EXAM: Mar 31 2023 10:54AM WOX 5244 - XR RIB/CHST 3V AP RIB/OBL/CHST R / PROCEDURE REASON: Rib pain on right side * * * * Physician Interpretation * * * * XR RIB/CHST 3V AP RIB/OBL/CHST R EXAM DATE/TIME: 03/31/2023 10:54 AM COMPARISON: None. CLINICAL INDICATION/HISTORY: Rib pain. TECHNIQUE: AP views centered high and low and oblique view of right ribs are presented for interpretation. PA view of the chest is also present. FINDINGS: There appears to be mildly displaced right ninth rib fracture. There is no pneumothorax or pleural effusion. The underlying visualized lungs appear normal. There are degenerative changes in the acromioclavicular joint. DIVISION OF RADIOLOGY Provider, Leonardo Collins - 03/31/2023 * * *Final Report* * * DATE OF EXAM: Mar 31 2023 10:54AM WOX 5244 - XR RIB/CHST 3V AP RIB/OBL/CHST R / PROCEDURE REASON: Rib pain on right side * * * * Physician Interpretation * * * * XR RIB/CHST 3V AP RIB/OBL/CHST R EXAM DATE/TIME: 03/31/2023 10:54 AM COMPARISON: None. CLINICAL INDICATION/HISTORY: Rib pain. TECHNIQUE: AP views centered high and low and oblique view of right ribs are presented for interpretation. PA view of the chest is also present. FINDINGS: There appears to be mildly displaced right ninth rib fracture. There is no pneumothorax or pleural effusion. The underlying visualized lungs appear normal. There are degenerative changes in the acromioclavicular joint. IMPRESSION IMPRESSION: Right ninth rib fracture. Peanut Roaster: PSCB Transcribe Date/Time: Mar 31 2023 10:58A Dictated by : JOURDAN TRENT MD This examination was interpreted and the report reviewed and electronically signed by: JOURDAN TRENT MD on Mar 31 2023 11:03AM EST [facility] Radiology Study observation (narrative) [facility] XR Ribs - right Views and Ch est PAOrdered By: Ccf Provider on 03-31-2023 [facility] ic Basophil percentageon 2022 Testosterone [Mass/Vol] 383 ng/dL 264-916 [facility] Comment on above: Adult male reference interval is based on a population ofhealthy nonobese males (BMI <30) between 19 and 39 yearsold. Whitney et.al. JCEM 2017,102;0203-3873. PMID:[id number]. Blood hemoglobin measurement (mass/volume)on 03-08-2023 Hemoglobin (Bld) [Mass/Vol] 14.9 g/dL 13.0-16.5 [facility] Free testosterone percentage on 03-08-2023 Testosterone Free/Testosterone.t otal [Mass fraction] 3.59 % 1.50-4.20 [facility] Comment on above: Performed at: [address] [id number] Director: Ayo Gao PhD, Phone: [phone] at: [facility] [address] [id number] Director: Tameka Arias MD, Phone: [phone] Hematocrit Auto (Bld) [Volum e fraction]on 03-08-2023 Hematocrit (Bld) [Volume fraction] 43.7 % 40-54 [facility] No Panel Informationon 03-08 Prostate Specific Antigen Screen 3.43 ng/mL 0.00-4.00 [facility] Comment on above: This test was perfor med using the TPSA assay method for the[employer] chemistry system. Values obtained with differentassay methods cannot be used interchangably.When changing PSA assays in the course of monitoring apatient, additional sequential testing should be carriedout to confirm baseline values. Serum or plasma testosterone free measurement (mass/volume)on 03-08-2023 Testosterone Free [Mass/Vol] 13.75 ng/dL 5.00-21.00 [facility] XR CHEST 2V FRONTAL/LATon [facility] XR Chest PA and Lateralon IMPRESSION: No acute radiographic abnormality. Peanut Roaster: GEORGE Transcribe Date/Time: Oct 03 2022 2:39P Dictated by : ROMIE GARG MD This examination was interpreted and the report reviewed and electronically signed by: ROMIE GARG MD on Oct 03 2022 2:39PM [facility] DIVISION OF RADIOLOGY * * *Final Report* * * DATE OF EXAM: Oct 03 2022 2:23PM WOX 5291 - XR CHEST 2V FRONTAL/LAT / PROCEDURE REASON: Acute cough * * * * Physician Interpretation * * * * EXAMINATION: CHEST RADIOGRAPH (2 VIEW FRONTAL & LATERAL) CLINICAL HISTORY: Acute cough MQ: XC2_6 EXAM DATE/TIME: 10/03/2022 2:23 PM COMPARISON: Chest x-ray dated June 19, 2020 RESULT: Lines, tubes, and devices: None. Lungs and pleura: No consolidation. No lung mass. No pleural effusion. No pneumothorax. Cardiomediastinal silhouette: Stable cardiomediastinal silhouette. Bones and soft tissues: Degenerative changes are present within the thoracic spine. DIVISION OF RADIOLOGY Provider, Leonardo Collins - 10/03/2022 * * *Final Report* * * DATE OF EXAM: Oct 03 2022 2:23PM WOX 5291 - XR CHEST 2V FRONTAL/LAT / PROCEDURE REASON: Acute cough * * * * Physician Interpretation * * * * EXAMINATION: CHEST RADIOGRAPH (2 VIEW FRONTAL & LATERAL) CLINICAL HISTORY: Acute cough MQ: XC2_6 EXAM DATE/TIME: 10/03/2022 2:23 PM COMPARISON: Chest x-ray dated June 19, 2020 RESULT: Lines, tubes, and devices: None. Lungs and pleura: No consolidation. No lung mass. No pleural effusion. No pneumothorax. Cardiomediastinal silhouette: Stable cardiomediastinal silhouette. Bones and soft tissues: Degenerative changes are present within the thoracic spine. IMPRESSION IMPRESSION: No acute radiographic abnormality. Peanut Roaster: PSCB Transcribe Date/Time: Oct 03 2022 2:39P Dictated by : ROMIE GARG MD This examination was interpreted and the report reviewed and electronically signed by: ROMIE GARG MD on Oct 03 2022 2:39PM EST [facility] Radiology Study observation (narrative) [facility] XR Chest PA and LateralOrder ed By: Ccf Provider on 10-03-2022 [facility] Blood hemoglobin measurement (mass/volume)on 08-31-2022 Hemoglobin (Bld) [Mass/Vol] 15.7 g/dL 13.0-16.5 [facility] Hematocrit Auto (Bld) [Volum e fraction]on 08-31-2022 Hematocrit (Bld) [Volume fraction] 45.6 % 40-54 [facility] No Panel Informationon 08-31 Prostate Specific Antigen Screen 2.68 ng/mL 0.00-4.00 [facility] Comment on above: This test was perfor med using the TPSA assay method for the[employer] chemistry system. Values obtained with differentassay methods cannot be used interchangably.When changing PSA assays in the course of monitoring apatient, additional sequential testing should be carriedout to confirm baseline values. Basic Metabolic Panel (COPC) on 04-26-2022 Anion gap [Moles/Vol] 17 mmol/L High - [facility] Comment on above: Order Comment: Items in this order include: HgbA1C, Basic Metabolic Panel, Hepatic Panel, Lipid Panel Testing Performed By: [facility] [address] [place] [id number] CLIA#:[id number] Dr. Liliane Navarro, Geographic Information Systems Analyst Performed By: #### C 45, C48, C8, C406 #### [facility] [address] [place] [address] B/C Ratio 20.0 Ratio Normal 10.0-28.6 [facility] Comment on above: Order Comment: Items in this order include: HgbA1C, Basic Metabolic Panel, Hepatic Panel, Lipid Panel Testing Performed By: [facility] [address] [place] [address] CLIA#:[id number] [address] Liliane Navarro, Geographic Information Systems Analyst Performed By: #### C 45, C48, C8, C406 #### [facility] [address] [place] [address] Calcium [Mass/Vol] 9.4 mg/dL Normal 8.3-10.6 [facility] Comment on above: Order Comment: Items in this order include: HgbA1C, Basic Metabolic Panel, Hepatic Panel, Lipid Panel Testing Performed By: [facility] [address] [place] [address] CLIA#:[id number] [address] Liliane Navarro, Geographic Information Systems Analyst Performed By: #### C 45, C48, C8, C406 #### [facility] [address] [place] [address] Chloride [Moles/Vol] 100 mmol/L Normal 98-107 [facility] Comment on above: Order Comment: Items in this order include: HgbA1C, Basic Metabolic Panel, Hepatic Panel, Lipid Panel Testing Performed By: [facility] [address] [place] [address] CLIA#:[id number] Dr. Liliane Navarro, Geographic Information Systems Analyst Performed By: #### C 45, C48, C8, C406 #### [facility] [address] [place] [address] CO2 [Moles/Vol] 20 mmol/L Normal 20-31 [facility] Comment on above: Order Comment: Items in this order include: HgbA1C, Basic Metabolic Panel, Hepatic Panel, Lipid Panel Testing Performed By: [facility] [address] [place] [address] CLIA#:[id number] [address] Liliane Navarro, Geographic Information Systems Analyst Performed By: #### C 45, C48, C8, C406 #### [facility] [address] [place] [address] Creatinine [Mass/Vol] 1.0 mg/dL Normal 0.7-1.3 [facility] Comment on above: Order Comment: Items in this order include: HgbA1C, Basic Metabolic Panel, Hepatic Panel, Lipid Panel Testing Performed By: [facility] [address] [place] [address] CLIA#:[id number] [address] Liliane Navarro, Geographic Information Systems Analyst Performed By: #### C 45, C48, C8, C406 #### [facility] [facility] [address] [place] [address] GFR 74 mL/min per 1.73 Normal >60 [facility] Comment on above: Order Comment: Items in this order include: HgbA1C, Basic Metabolic Panel, Hepatic Panel, Lipid Panel Testing Performed By: [facility] [address] [place] [address] CLIA#:[id number] [address] Liliane Navarro, Geographic Information Systems Analyst Result Comment: The GFR estimate is not adjusted for race. Performed By: #### C 45, C48, C8, C406 #### [facility] [facility] [address] [place] [address] Glucose [Mass/Vol] 116 mg/dL High 74-106 [facility] Comment on above: Order Comment: Items in this order include: HgbA1C, Basic Metabolic Panel, Hepatic Panel, Lipid Panel Testing Performed By: [facility] [address] [place] [address] CLIA#:[id number] [address]. Liliane Navarro, Geographic Information Systems Analyst Performed By: #### C 45, C48, C8, C406 #### [facility] [address] [place] [address] Potassium [Moles/Vol] 4.4 mmol/L Normal 3.5-5.1 [facility] Comment on above: Order Comment: Items in this order include: HgbA1C, Basic Metabolic Panel, Hepatic Panel, Lipid Panel Testing Performed By: [facility] [address] [place] [address] CLIA#:[id number] [address] Liliane Navarro, Geographic Information Systems Analyst Performed By: #### C 45, C48, C8, C406 #### [facility] [address] [facility] [place] [address] Sodium [Moles/Vol] 137 mmol/L Normal 136-145 [facility] Comment on above: Order Comment: Items in this order include: HgbA1C, Basic Metabolic Panel, Hepatic Panel, Lipid Panel Testing Performed By: [facility] [address] [place] [address] CLIA#:[id number] [address]. Liliane Navarro, Geographic Information Systems Analyst Performed By: #### C 45, C48, C8, C406 #### [facility] [address] [facility] [place] [address] Urea nitrogen [Mass/Vol] 20 mg/dL Normal 9-23 [facility] Comment on above: Order Comment: Items in this order include: HgbA1C, Basic Metabolic Panel, Hepatic Panel, Lipid Panel Testing Performed By: [facility] [address] [place] [address] CLIA#:[id number] [address]. Liliane Navarro, Geographic Information Systems Analyst Performed By: #### C 45, C48, C8, C406 #### [facility] [address] [facility] [place] [address] Hepatic Panel (COPC)on 04-26 Albumin [Mass/Vol] 4.8 g/dL Normal 3.2-4.8 [facility] Comment on above: Performed By: #### C 45, C48, C8, C406 #### [facility] [address] [place] [address] Alk Phos 62 U/L Normal 40-127 [facility] Comment on above: Performed By: #### C 45, C48, C8, C406 #### [facility] [address] [place] [address] Rd [address] [place] [address] ALT [Catalytic activity/Vol] 87 U/L High 10-49 [facility] Comment on above: Performed By: #### C 45, C48, C8, C406 #### [facility] [address] [place] [address] Rd [address] [place] [address] AST [Catalytic activity/Vol] 65 U/L High <34 [facility] Comment on above: Performed By: #### C 45, C48, C8, C406 #### [facility] [address] [place] [address] [address] [place] [address] Bili (Direct) 0.2 mg/dL Normal 0.0-0.4 [facility] Comment on above: Performed By: #### C 45, C48, C8, C406 #### [facility] [address] [place] [address] [address] [place] [address] Bili (Indirect) 0.5 mg/dL Normal 0.0-1.1 [facility] Comment on above: Performed By: #### C 45, C48, C8, C406 #### [facility] [address] [place] [address] [address] [place] [address] Bilirubin [Mass/Vol] 0.7 mg/dL Normal 0.3-1.2 [facility] Comment on above: Performed By: #### C 45, C48, C8, C406 #### [facility] [address] [place] [address] [address] [place] [address] Protein [Mass/Vol] 7.3 g/dL Normal 5.7-8.2 [facility] Comment on above: Performed By: #### C 45, C48, C8, C406 #### [facility] [address] [place] [address] HgbA1C (COPC)on 04-26-2022 HbA1c (Bld) [Mass fraction] 6.0 % High <5.7 [facility] Comment on above: Order Comment: Items in this order include: HgbA1C, Basic Metabolic Panel, Hepatic Panel, Lipid Panel Testing Performed By: [facility] [address] [place] [address] CLIA#:[id number] [address] Liliane Navarro, Geographic Information Systems Analyst Result Comment: Refe rence Interval: Normal: below 5.7%. Prediabetes: 5.7% to 6.4%. Diabetes: 6.5% or above. Performed By: #### C 45, C48, C8, C406 #### [facility] [address] [place] [address] Lipid Panelon 04-26-2022 Cholesterol [Mass/Vol] 167 mg/dL Normal <200 [facility] Comment on above: Result Comment: Low- risk levels (desirable) < 200 mg/dL Moderate-risk levels (borderline) 200 to 239 mg/dL High-risk levels > or = 240 mg/dL Performed By: #### C 45, C48, C8, C406 #### [facility] [address] [place] [address] Cholesterol in HDL [Mass/Vol] 50 mg/dL Low >60 [facility] Comment on above: Performed By: #### C 45, C48, C8, C406 #### [facility] [address] [place] [address] Cholesterol in LDL [Mass/Vol] 76 mg/dL Normal <130 [facility] Comment on above: Performed By: #### C 45, C48, C8, C406 #### [facility] [address] [place] [address] Cholesterol.total/C holesterol in HDL [Mass ratio] 3.3 {ratio} Normal <4.0 [facility] Comment on above: Performed By: #### C 45, C48, C8, C406 #### [facility] [address] [place] [address] Non-HDL Chol 117 Normal LDL Goal + 30 [facility] Comment on above: Result Comment: LDL and Non-HDL goal dependent upon individual risk Performed By: #### C 45, C48, C8, C406 #### [facility] [address] [place] [address] Triglyceride [Mass/Vol] 206 mg/dL High <150 [facility] Comment on above: Performed By: #### C 45, C48, C8, C406 #### [facility] [address] [facility] [address] [place] [address] VLDL-Calc 41 mg/dl High <30 [facility] Comment on above: Performed By: #### C 45, C48, C8, C406 #### [facility] [address] [facility] [place] [address] Urine, Random, Albumin/Crea (COPC)on 04-26-2022 Albumin DL <= 20 mg/L (U) [Mass/Vol] 2.7 mg/dL Normal [facility] Comment on above: Order Comment: Items in this order include: Urine, Random, Albumin/Crea Testing Performed By: [facility] [address] [place] [address] CLIA#:[id number] [address] Liliane Navarro, Geographic Information Systems Analyst Performed By: #### C 80 #### [facility] [address] [place] [address] Creatinine (U) [Mass/Vol] 121.6 mg/dL Normal 22.0-328.0 [facility] Comment on above: Order Comment: Items in this order include: Urine, Random, Albumin/Crea Testing Performed By: [facility] [address] [place] [address] CLIA#:[id number] [address] Liliane Navarro, Geographic Information Systems Analyst Performed By: #### C 80 #### [facility] [address] [facility] [address] [place] [address] Urine Microalb/ Creat Ratio 22.2 mcg/mg creat Normal 0.0-29.9 [facility] Comment on above: Order Comment: Items in this order include: Urine, Random, Albumin/Crea Testing Performed By: [facility] [address] [place] [address] CLIA#:[id number] [address] Liliane Navarro, Geographic Information Systems Analyst Result Comment: The ADA (Diabetes Care 26:s94-s98,2003) defines abnormalities in albumin excretion as follows: Category Result (mcg/mg creatinine) Normal <30 Microalbuminuria 30-299 Clinical Albuminuria > or =300 The ADA recommends that at least two of three specimens collected within a 3-6 month period be abnormal before considering a patient to be within a diagnostics category. Performed By: #### C 80 #### [facility] [address] [facility] [address] [place] [address] Blood hemoglobin measurement (mass/volume)on 02-16-2022 Hemoglobin (Bld) [Mass/Vol] 15.8 g/dL 13.0-16.5 [facility] Work Phone: Hematocrit Auto (Bld) [Volum e fraction]on 02-16-2022 Hematocrit (Bld) [Volume fraction] 45.8 % 40-54 [facility] Work Phone: ALT (SGPT)on 10-26-2021 ALT [Catalytic activity/Vol] 76 U/L High 10-49 [facility] Comment on above: Performed By: #### C 8, C4125, C406, C4719, C45 #### [facility] [address] [facility] [address] [place] [address] Basic Metabolic Panelon 06-0 Anion gap [Moles/Vol] 5 mmol/L Normal 5-15 [facility] Comment on above: Order Comment: Items in this order include: Basic Metabolic Panel, Lipid Panel, PSA (Screening Medicare Only), ALT (SGPT), HgbA1C Testing Performed By: [facility] [address] [place] [address] CLIA#:[id number] [address]. Liliane Navarro, Geographic Information Systems Analyst Performed By: #### C 8, C4125, C406, C4719, C45 #### [facility] [address] [place] [address] B/C Ratio 18.2 Ratio Normal [facility] Comment on above: Order Comment: Items in this order include: Basic Metabolic Panel, Lipid Panel, PSA (Screening Medicare Only), ALT (SGPT), HgbA1C Testing Performed By: [facility] [address] [place] [address] CLIA#:[id number] [address] Liliane Navarro, Geographic Information Systems Analyst Performed By: #### C 8, C4125, C406, C4719, C45 #### [facility] [address] [place] [address] Calcium [Mass/Vol] 9.8 mg/dL Normal 8.3-10.6 [facility] Comment on above: Order Comment: Items in this order include: Basic Metabolic Panel, Lipid Panel, PSA (Screening Medicare Only), ALT (SGPT), HgbA1C Testing Performed By: [facility] [address] [place] [id number] CLIA#:[id number] Dr. Liliane Navarro, Geographic Information Systems Analyst Performed By: #### C 8, C4125, C406, C4719, C45 #### [facility] [place] [address] Chloride [Moles/Vol] 103 mmol/L Normal 98-107 [facility] Comment on above: Order Comment: Items in this order include: Basic Metabolic Panel, Lipid Panel, PSA (Screening Medicare Only), ALT (SGPT), HgbA1C Testing Performed By: [facility] [address] [place] [address] CLIA#:[id number] Dr. Liliane Navarro, Geographic Information Systems Analyst Performed By: #### C 8, C4125, C406, C4719, C45 #### [facility] [address] [place] [address] CO2 [Moles/Vol] 31 mmol/L Normal 20-31 [facility] Comment on above: Order Comment: Items in this order include: Basic Metabolic Panel, Lipid Panel, PSA (Screening Medicare Only), ALT (SGPT), HgbA1C Testing Performed By: [facility] [address] [place] [address] CLIA#:[id number] [address] Liliane Navarro, Geographic Information Systems Analyst Performed By: #### C 8, C4125, C406, C4719, C45 #### [facility] [address] [place] [address] Creatinine [Mass/Vol] 1.1 mg/dL Normal 0.7-1.3 [facility] Comment on above: Order Comment: Items in this order include: Basic Metabolic Panel, Lipid Panel, PSA (Screening Medicare Only), ALT (SGPT), HgbA1C Testing Performed By: [facility] [address] [place] [address] CLIA#:[id number] [address] Liliane Navarro, Geographic Information Systems Analyst Performed By: #### C 8, C4125, C406, C4719, C45 #### [facility] [address] [place] [address] GFR 67 mL/min per 1.73 Normal >60 [facility] Comment on above: Order Comment: Items in this order include: Basic Metabolic Panel, Lipid Panel, PSA (Screening Medicare Only), ALT (SGPT), HgbA1C Testing Performed By: [facility] [address] [place] [address] CLIA#:[id number] [address]. Liliane Navarro, Geographic Information Systems Analyst Result Comment: The GFR estimate is not adjusted for race. If the patient's race is -Central African, the GFR estimate must be multiplied by a factor of 1.21. Performed By: #### C 8, C4125, C406, C4719, C45 #### [facility] [address] [place] [address] Glucose [Mass/Vol] 87 mg/dL Normal 74-106 [facility] Comment on above: Order Comment: Items in this order include: Basic Metabolic Panel, Lipid Panel, PSA (Screening Medicare Only), ALT (SGPT), HgbA1C Testing Performed By: [facility] [address] [place] [address] CLIA#:[id number] [address] Liliane Navarro, Geographic Information Systems Analyst Performed By: #### C 8, C4125, C406, C4719, C45 #### [facility] [address] [place] [address] Potassium [Moles/Vol] 4.6 mmol/L Normal 3.5-5.1 [facility] Comment on above: Order Comment: Items in this order include: Basic Metabolic Panel, Lipid Panel, PSA (Screening Medicare Only), ALT (SGPT), HgbA1C Testing Performed By: [facility] [address] [place] [address] CLIA#:[id number] [address] Liliane Navarro, Geographic Information Systems Analyst Performed By: #### C 8, C4125, C406, C4719, C45 #### [facility] [address] [place] [address] Sodium [Moles/Vol] 139 mmol/L Normal 136-145 [facility] Comment on above: Order Comment: Items in this order include: Basic Metabolic Panel, Lipid Panel, PSA (Screening Medicare Only), ALT (SGPT), HgbA1C Testing Performed By: [facility] [address] [place] [address] CLIA#:[id number] [address]. Liliane Navarro, Geographic Information Systems Analyst Performed By: #### C 8, C4125, C406, C4719, C45 #### [facility] [address] [place] [address] Urea nitrogen [Mass/Vol] 20 mg/dL Normal 9-23 [facility] Comment on above: Order Comment: Items in this order include: Basic Metabolic Panel, Lipid Panel, PSA (Screening Medicare Only), ALT (SGPT), HgbA1C Testing Performed By: [facility] [address] [place] [address] CLIA#:[id number] [address] Liliane Navarro, Geographic Information Systems Analyst Performed By: #### C 8, C4125, C406, C4719, C45 #### [facility] [address] [place] [address] [id number] 10-26-2021 HbA1c (Bld) [Mass fraction] 5.9 % High <5.7 [facility] Comment on above: Order Comment: Items in this order include: Basic Metabolic Panel, Lipid Panel, PSA (Screening Medicare Only), ALT (SGPT), HgbA1C Testing Performed By: [facility] [address] [place] [address] CLIA#:[id number] [address] Liliane Navarro, Geographic Information Systems Analyst Result Comment: Refe rence Interval: Normal: below 5.7%. Prediabetes: 5.7% to 6.4%. Diabetes: 6.5% or above. Performed By: #### C 8, C4125, C406, C4719, C45 #### [facility] [address] [place] [address] Lipid Panelon 10-26-2021 Cholesterol [Mass/Vol] 196 mg/dL Normal <200 [facility] Comment on above: Result Comment: Low- risk levels (desirable) < 200 mg/dL Moderate-risk levels (borderline) 200 to 239 mg/dL High-risk levels > or = 240 mg/dL Performed By: #### C 8, C4125, C406, C4719, C45 #### [facility] [address] [place] [address] Cholesterol in HDL [Mass/Vol] 45 mg/dL Low >60 [facility] Comment on above: Performed By: #### C 8, C4125, C406, C4719, C45 #### [facility] [address] [place] [address] Cholesterol in LDL [Mass/Vol] 91 mg/dL Normal <130 [facility] Comment on above: Performed By: #### C 8, C4125, C406, C4719, C45 #### [facility] [address] [place] [address] Cholesterol.total/C holesterol in HDL [Mass ratio] 4.4 {ratio} High <4.0 [facility] Comment on above: Performed By: #### C 8, C4125, C406, C4719, C45 #### [facility] [place] [address] Non-HDL Chol 151 Normal LDL Goal + 30 [facility] Comment on above: Result Comment: LDL and Non-HDL goal dependent upon individual risk Performed By: #### C 8, C4125, C406, C4719, C45 #### [facility] [address] [place] [address] Triglyceride [Mass/Vol] 300 mg/dL High <150 [facility] Comment on above: Performed By: #### C 8, C4125, C406, C4719, C45 #### [facility] [address] [place] [address] VLDL-Calc 60 mg/dl High <30 [facility] Comment on above: Performed By: #### C 8, C4125, C406, C4719, C45 #### [facility] [place] [address] [place] [address] PSA (Screening Medicare Only )on 10-26-2021 SCRPSA 2.86 ng/mL Normal 0.00-4.00 [facility] Comment on above: Performed By: #### C 8, C4125, C406, C4719, C45 #### [facility] [place] [address] XR Chest PA and Lateralon IMPRESSION: Nonspecific multifocal airspace disease. Differential considerations includes bacterial and viral pneumonia. Peanut Roaster: GEORGE Transcribe Date/Time: Jun 19 2020 1:16P Dictated by : KEVIN HERNANDEZ MD This examination was interpreted and the report reviewed and electronically signed by: KEVIN HERNANDEZ MD on Jun 19 2020 1:19PM EST DIVISION OF RADIOLOGY * * *Final Report* * * DATE OF EXAM: Jun 19 2020 12:59PM WOX 5291 - XR CHEST 2V FRONTAL/LAT / PROCEDURE REASON: Cough * * * * Physician Interpretation * * * * EXAMINATION: CHEST RADIOGRAPH (2 VIEW FRONTAL & LATERAL) CLINICAL HISTORY: Cough MQ: XC2_6 EXAM DATE/TIME: 06/19/2020 12:59 PM COMPARISON: No relevant prior studies available. RESULT: Lines, tubes, and devices: None. Lungs and pleura: Multifocal ill-defined peripheral opacities predominantly in the mid lungs. No evidence of pulmonary vascular redistribution or pleural effusion. Cardiomediastinal silhouette: Normal cardiomediastinal silhouette. Bones and soft tissues: Unremarkable. DIVISION OF RADIOLOGY Provider, [facility] - 06/19/2020 * * *Final Report* * * DATE OF EXAM: Jun 19 2020 12:59PM WOX 5291 - XR CHEST 2V FRONTAL/LAT / PROCEDURE REASON: Cough * * * * Physician Interpretation * * * * EXAMINATION: CHEST RADIOGRAPH (2 VIEW FRONTAL & LATERAL) CLINICAL HISTORY: Cough MQ: XC2_6 EXAM DATE/TIME: 06/19/2020 12:59 PM COMPARISON: No relevant prior studies available. RESULT: Lines, tubes, and devices: None. Lungs and pleura: Multifocal ill-defined peripheral opacities predominantly in the mid lungs. No evidence of pulmonary vascular redistribution or pleural effusion. Cardiomediastinal silhouette: Normal cardiomediastinal silhouette. Bones and soft tissues: Unremarkable. IMPRESSION IMPRESSION: Nonspecific multifocal airspace disease. Differential considerations includes bacterial and viral pneumonia. Peanut Roaster: GEORGE Transcribe Date/Time: Jun 19 2020 1:16P Dictated by : KEVIN HERNANDEZ MD This examination was interpreted and the report reviewed and electronically signed by: KEVIN HERNANDEZ MD on Jun 19 2020 1:19PM EST [facility] Radiology Study observation (narrative) [facility] XR Chest PA and LateralOrder ed By: [facility] Provider on 06-19-2020 [facility] Vital Signs Date Time Vital Sign Value Performing Clinician Facility 11-12-2024 07:53-0400 Body height 177.8 cm Sue Mccauley LIVESTOCK AUCTIONEER-C Work Phone: [facility] 11-12-2024 07:53-0400 Body mass index (BMI) [Ratio] 33.7 kg/m2 Sue Mccauley LIVESTOCK AUCTIONEER-C Work Phone: [facility] 11-12-2024 07:53-0400 Body temperature 97.5 [degF] Sue Mccauley LIVESTOCK AUCTIONEER-C Work Phone: [facility] 11-12-2024 07:53-0400 Body weight 106.59 kg Sue Mccauley LIVESTOCK AUCTIONEER-C Work Phone: [facility] 11-12-2024 07:53-0400 Diastolic blood pressure 80 mm[Hg] Sue Mccauley LIVESTOCK AUCTIONEER-C Work Phone: [facility] 11-12-2024 07:53-0400 Heart rate 58 /min Sue Mccauley LIVESTOCK AUCTIONEER-C Work Phone: [facility] 11-12-2024 07:53-0400 Respiratory rate 16 /min Sue Mccauley LIVESTOCK AUCTIONEER-C Work Phone: [facility] 11-12-2024 07:53-0400 SaO2% (BldA) [Mass fraction] 96 % Sue Mccauley LIVESTOCK AUCTIONEER-C Work Phone: [facility] 11-12-2024 07:53-0400 Systolic blood pressure 165 mm[Hg] Sue Mccauley LIVESTOCK AUCTIONEER-C Work Phone: [facility] 07-24-2024 10:29-0500 Body temperature 100.4 [degF] Alo Hurley APRN.VENEER SANDER Work Phone: [facility] 07-24-2024 10:29-0500 Body weight 107.6 kg Alo Hurley APRN.VENEER SANDER Work Phone: [facility] 07-24-2024 10:29-0500 Diastolic blood pressure 100 mm[Hg] Alo Hurley APRN.VENEER SANDER Work Phone: [facility] 07-24-2024 10:29-0500 Heart rate 94 /min Alo Hurley APRN.VENEER SANDER Work Phone: [facility] 07-24-2024 10:29-0500 Respiratory rate 16 /min Alo Hurley APRN.VENEER SANDER Work Phone: [facility] 07-24-2024 10:29-0500 SaO2% (BldA) [Mass fraction] 95 % Alo Hurley APRN.VENEER SANDER Work Phone: [facility] 07-24-2024 10:29-0500 Systolic blood pressure 170 mm[Hg] Alo Hurley APRN.VENEER SANDER Work Phone: [facility] 07-12-2024 13:51-0500 Diastolic blood pressure 85 mm[Hg] TONY ALONZO Work Phone: [facility] 07-12-2024 13:51-0500 Systolic blood pressure 160 mm[Hg] TONY ALONZO Work Phone: [facility] 07-12-2024 13:45-0500 Body height 177.8 cm TONY ALONZO Work Phone: [facility] 07-12-2024 13:45-0500 Body mass index (BMI) [Ratio] 33.3 kg/m2 TONY ALONZO Work Phone: [facility] 07-12-2024 13:45-0500 Body temperature 97.2 [degF] TONY ALONZO Work Phone: [facility] 07-12-2024 13:45-0500 Body weight 105.23 kg TONY ALONZO Work Phone: [facility] 07-12-2024 13:45-0500 Heart rate 64 /min TONY ALONZO Work Phone: [facility] 07-12-2024 13:45-0500 Respiratory rate 20 /min TONY ALONZO Work Phone: [facility] 07-12-2024 13:45-0500 SaO2% (BldA) [Mass fraction] 96 % TONY COX Work Phone: [facility] 10-03-2022 13:55-0400 Body temperature 97.2 [degF] Dennis Sinclair MD Work Phone: [facility] 10-03-2022 13:55-0400 Body weight 110.22 kg Dennis Sinclair MD Work Phone: [facility] 10-03-2022 13:55-0400 Diastolic blood pressure 76 mm[Hg] Dennis Sinclair MD Work Phone: [facility] 10-03-2022 13:55-0400 Heart rate 98 /min Dennis Sinclair MD Work Phone: [facility] 10-03-2022 13:55-0400 Respiratory rate 16 /min Dennis Sinclair MD Work Phone: [facility] 10-03-2022 13:55-0400 SaO2% (BldA) [Mass fraction] 95 % Dennis Sinclair MD Work Phone: [facility] 10-03-2022 13:55-0400 Systolic blood pressure 132 mm[Hg] Dennis Sinclair MD Work Phone: [facility] Encounters Encounter Date Encounter Type Care Provider Facility Start: 01-17-2025 ambulatory [facility] Facility :[facility] Start: 01-01-2025 ambulatory [facility] Start: 12-07-2024 ambulatory [facility] Start: 12-04-2024 End: 12-04-2024 Patient encounter procedure Sue Mccauley NP-C Work Phone: -Laboratory Work Phone: Start: 12-04-2024 End: 12-04-2024 ambulatory Sue Mccauley LIVESTOCK AUCTIONEER-C Work Phone: -Laboratory Start: 12-04-2024 End: 12-04-2024 ambulatory NELL VALENZUELA Facility:[facility] Start: 11-12-2024 End: 11-12-2024 Patient encounter procedure MELLY Mccauley -[facility] Work Phone: Start: 11-12-2024 End: 11-12-2024 ambulatory Sue Mccauley LIVESTOCK AUCTIONEER-C Work Phone: [facility] Work Phone: Start: 10-01-2024 End: 10-01-2024 ambulatory [facility] Start: 10-01-2024 End: 10-01-2024 Encounter for general adult medical examination without abnormal findings [facility] Start: 08-20-2024 End: 08-20-2024 ambulatory TONY ALONZO Work Phone: [facility] Work Phone: Start: 08-20-2024 End: 08-20-2024 Patient encounter procedure MELLY Mccauley -[facility] Work Phone: Start: 08-19-2024 End: 08-20-2024 ambulatory [facility] Start: 07-29-2024 ambulatory [facility] Start: 07-24-2024 End: 07-24-2024 Subsequent hospital visit by physician [facility] Work Phone: Radiology Comment on above: Acute cough [R05.1] Start: 07-24-2024 End: 07-24-2024 ambulatory ALO HURLEY Facility:[facility] Start: 07-24-2024 End: 07-24-2024 Patient encounter procedure Alo Hurley BEADING MACHINE OPERATOR.VENEER SANDER Work Phone: [facility] Comment on above: Acute cough (Primary Dx) Start: 07-12-2024 End: 07-12-2024 Patient encounter procedure LIVESTOCK AUCTIONEER Sue Mccauley -[facility] Work Phone: Start: 07-12-2024 End: 07-12-2024 ambulatory Sue Mccauley Facility:[facility] Start: 05-29-2024 End: 05-29-2024 Patient encounter procedure TONY ALONZO Work Phone: -Laboratory Work Phone: Start: 05-29-2024 End: 05-29-2024 [facility] Facility[facility] Start: 04-29-2024 End: 04-29-2024 ambulatory [facility] Start: 01-17-2024 End: 01-17-2024 ambulatory [facility] Start: 03-31-2023 End: 03-31-2023 Subsequent hospital visit by physician Salvatore [facility] Work Phone: Radiology Comment on above: Rib pain on right si de [R07.81] Start: 03-08-2023 End: 03-08-2023 ambulatory [facility] Work Phone: Start: 03-08-2023 End: 03-08-2023 [facility] Start: 10-27-2022 Refill Miriam George Work Phone: [facility] Comment on above: Refill Request Start: 10-03-2022 End: 10-03-2022 Subsequent hospital visit by physician Xr [facility] Work Phone: Radiology Comment on above: Acute cough [R05.1] Start: 10-03-2022 End: 10-03-2022 Patient encounter procedure Dennis Sinclair MD Work Phone: [facility] Comment on above: Acute cough (Primary Dx) Start: 08-31-2022 End: 08-31-2022 ambulatory [facility] Work Phone: Start: 08-31-2022 End: 08-31-2022 Patient encounter procedure [facility] Start: 02-16-2022 End: 02-16-2022 ambulatory [facility] Work Phone: Start: 02-16-2022 End: 02-16-2022 Patient encounter procedure [facility] Start: 06-20-2020 End: 06-20-2020 Evaluation and management of inpatient Eddie Martinez [facility] Comment on above: COVID-19 Start: 06-20-2020 End: 06-20-2020 Patient encounter procedure XAVI DE LA CRUZ [facility] Start: 06-19-2020 End: 06-19-2020 Subsequent hospital visit by physician Xr [facility] Work Phone: Radiology Comment on above: Cough [R05] Start: 06-18-2020 End: 06-18-2020 Evaluation and management of inpatient Cathy Culver Work Phone: [facility] Start: 06-15-2020 End: 06-15-2020 Orders Only Xavi De La Cruz Work Phone: [facility] Provider Hospitalist Comment on above: COVID-19 (Primary Dx ) Procedures Date Procedure Procedure Detail Performing Clinician Start: 12-04-2024 Prostate specific an tigen measurement Sue Mccauley LIVESTOCK AUCTIONEER-C Work Phone: Comment on above: This test was perfor med using the [employer] tPSA method. Measured values of a patient sample can vary depending on the testing procedure used. PSA values determined on patient samples by different testing procedures cannot be used interchangeably. If there is a change in PSA assays while monitoring therapy, sequential testing should be performed to confirm baseline values. Start: 10-01-2024 PSA screening XAVI COLON SHERIEIrvin Comment on above: Order Comment: Locat ion: Result Comment: This test was performed using the Siemens AtellLakala in a two-site sandwich immunoassay assay. Results from the Siemens Atellica PSA assay should not be interpreted as being definitive for the prescence or absence of Prostate cancer. Values obtained from different methods cannot be used interchangeably. Performed By: #### L AB116, HQM619, GUZ105, LAB15, LAB18, LAB20 #### LILIANE NAVARRO ([id number]) [facility] ([facility]) [address], [address] [place] [address] Start: 07-24-2024 Radiologic exam ches t 2 views Alo Hurley APRN.VENEER SANDER Work Phone: Start: 06-06-2023 Lipid 1996 panel - S taylor or Plasma Alo Hurley APRN.VENEER SANDER Work Phone: Start: 03-31-2023 Radex ribs uni w/posteroant ch minimum 3 views Jair Culver BEADING MACHINE OPERATOR.VENEER SANDER Work Phone: Start: 10-03-2022 Radiologic exam ches t 2 views Dennis Sinclair MD Work Phone: Start: 06-19-2020 Radiologic exam ches t 2 views Roslyn Long APRN.VENEER SANDER Work Phone: Start: 03-20-2019 Colonoscopy Alo Hurley APRN.VENEER SANDER Work Phone: Plan of Treatment Date Care Activity Detail Author Start: 2029 RSV Vaccine (1 - 1-dose 75+ series) RSV Vaccine (1 - 1-dose 75+ series) [facility] Start: 06-06-2028 Lipid panel Lipid Screening [facility] Start: 04-18-2028 Urine microalbumin profile DTaP,Tdap,Td Vaccine (2 - Td or Tdap) [facility] Start: 06-06-2026 Diabetes Screening Diabetes Screening [facility] Start: 09-17-2024 Covid-19 Vaccine () Covid-19 Vaccine () [facility] Start: 05-22-2024 Advance Directive Discussion Advance Directive Discussion [facility] Start: 01-21-2024 Covid-19 Vaccine () Covid-19 Vaccine () [facility] Start: 01-21-2024 Covid-19 Vaccine () Covid-19 Vaccine () [facility] Start: 01-21-2024 Influenza vaccination Influenza Vaccine (#1) [facility] Start: 05-22-2023 Advance Directive Discussion Advance Directive Discussion [facility] Start: 05-22-2022 ADVANCE DIRECTIVE DISCUSSION ADVANCE DIRECTIVE DISCUSSION [facility] Start: 05-22-2022 DEPRESSION ASSESSMENT DEPRESSION ASSESSMENT [facility] Start: 09-17-2020 Pneumococcal Vaccine: 50+ (2 of 2 - PPSV23) Pneumococcal Vaccine: 50+ (2 of 2 - PPSV23) [facility] Start: 09-17-2020 Pneumococcal Vaccine: 65+ (2 of 2 - PPSV23 or PCV20) Pneumococcal Vaccine: 65+ (2 of 2 - PPSV23 or PCV20) [facility] Start: 03-20-2020 Screening for malignant neoplasm of colon [facility] Start: 2019 PNEUMOCOCCAL: 65+ (1 - PCV) PNEUMOCOCCAL: 65+ (1 - PCV) [facility] Start: 2014 RSV Vaccine (1 - 1-dose 60+ series) RSV Vaccine (1 - 1-dose 60+ series) [facility] Start: 2009 PROSTATE CANCER SCREENING DISCUSSION PROSTATE CANCER SCREENING DISCUSSION [facility] Start: 2004 SHINGRIX VACCINE (1 of 2) SHINGRIX VACCINE (1 of 2) [facility] Start: 1999 COLOGUARD (FIT-DNA) COLOGUARD (FIT-DNA) [facility] Start: 1999 Colonoscopy COLONOSCOPY [facility] Start: 1999 COLORECTAL CANCER SCREENING COLORECTAL CANCER SCREENING [facility] Start: [address] COLONOGRAPHY [facility] Start: 1999 DIABETES SCREEN DIABETES SCREEN [facility] Start: 1999 Diabetes Screening Diabetes Screening [facility] Start: 1999 FECAL OCCULT BLOOD FECAL OCCULT BLOOD [facility] Start: 1999 Screening for malignant neoplasm of colon [facility] Start: 1999 SIGMOIDOSCOPY SIGMOIDOSCOPY [facility] Start: 1989 Lipid panel Lipid Screening [facility] Start: 1989 LIPID SCREEN LIPID SCREEN [facility] Start: 1973 Urine microalbumin profile DTAP,TDAP,TD (1 - Tdap) [facility] Start: 1972 ANNUAL PCP TEAM CHRONIC DISEASE VISIT ANNUAL PCP TEAM CHRONIC DISEASE VISIT [facility] Start: 1972 Anxiety Screening Anxiety Screening [facility] Start: 1972 BP CONTROLLED (<130/80) BP CONTROLLED (<130/80) [facility] Start: 1972 Depression Screening Depression Screening [facility] Start: 1972 HEPATITIS C SCREENING HEPATITIS C SCREENING [facility] Start: 1972 Hepatitis C screening Hepatitis C Screening [facility] SARS-CoV-2 (COVID-19 ) RNA [Presence] in Respiratory specimen by FELICITA with probe detection 2019 CORONAVIRUS Microbiology Routine Acute cough 10/03/2022 3:11 PM EDT [place] Work Phone: Testosterone Free [Mass/volume] in Serum or Plasma [facility] Work Phone: Testosterone Free [Mass/volume] in Serum or Plasma [facility] Testosterone measurement [facility] Work Phone: Testosterone measurement [facility] Work Phone: [facility] Immunizations Immunization Date Immunization Notes Care Provider Chrissy herron 03-08-2022 influenza virus vacc ine, unspecified formulation Xr [place] Work Phone: [facility] 12-02-2021 COVID-19 original vaccine, full dose, monovalent (MODERNA) Dennis Sinclair MD Work Phone: [facility] 05-06-2021 COVID-19 original vaccine, full dose, monovalent (MODERNA) Dennis Sinclair MD Work Phone: [facility] 10-22-2020 COVID-19 original vaccine, full dose, monovalent (MODERNA) Dennis Sinclair MD Work Phone: [facility] 09-24-2020 COVID-19 original vaccine, full dose, monovalent (MODERNA) Dennis Sinclair MD Work Phone: [facility] Payers Date Payer Category Payer Self-pay [id number] 2020 Medicare ANTHEM MANAGED M EDICARE ANTHEM MEDIBLUE ESSENTIAL/PLUS/CONNECT/SNP HMO [id number] 2020-Present [id number] 2020 Medicare (Managed Care) [facility] HMO [id number] 2020 Unknown [id number]. [id number] 2020 Medicare [id number] 1955 Unknown [id number] 2.16.840.1.912465.3.579. 2.902 1954 Unknown [id number] 2.16.840.1.339169.3.579. 2.1260 1954 Unknown [id number] [id number]. 2.1260 1954 Unknown [id number] 2.16.840.1.753911.3.579. 2.1260 1954 Unknown [id number] 2.16.840.1.627958.3.579. 2.1260 1954 Unknown [id number] 2.16.840.1.895393.3.579. 2.1260 1954 Unknown [id number] 2.16.840.1.425018.3.579. 2.1260 1954 Unknown [id number] 2.16.840.1.982571.3.579. 2.1260 1954 Unknown [id number] 2.16.840.1.217141.3.579. 2.1260 Unknown [id number] Unknown [id number] 2.16.840.1.918732.3.579. 2.462 Unknown [id number] 2.16.840.1.123027.3.579. 2.462 Unknown [id number] 2.16.840.1.972398.3.579. 2.462 Unknown [id number] 2..840.1.752057.3.579. 2.462 Unknown [id number] 2.16.840.1.464795.3.579. 2.462 Unknown [id number] 2..840.1.744869.3.579. 2.462 Social History Date Type Detail Facility [facility] Start: 1955 Sex Assigned At Not on file [facility] Start: 1955 Sex Assigned At Male [facility] Start: 05-17-2017 End: 10-03-2022 Tobacco smoking status NHIS Never smoked tobacco [facility] Work Phone: Start: 05-17-2017 End: 10-03-2022 Tobacco use and exposure Smokeless tobacco non-user [facility] Work Phone: Start: 04-30-2020 End: 03-31-2023 History of Social function [facility] Start: 04-30-2020 End: 03-31-2023 Tobacco use panel [facility] National Score (1-100), lower number is lower risk Not on file [facility] Start: 05-20-2020 End: 06-19-2020 Exposure to SARS-CoV-2 (event) Not sure [facility] Start: 07-10-2024 [facility] Start: 08-22-2024 Sex Male (finding) [facility] Clinical Notes 06-19-2020 to 11-12-2024 Note Date & Type Note Facility 11-12-2024 Evaluation note Diagnosis Onset Date Resolution RAFAELA (obstructive sleep apnea) acute November 12, 2024 12:48pm Hypertension chronic November 12 12:48pm [facility] Work Phone: 1(623) 202-655203-05-2025 History of Present illness Narrative* Sherman Gallardo RT(R) - 07/24/2024 10:50 AM EST Radiology Service Progress Note PATIENT NAME: Wagner Hackett DATE OF SERVICE: July 24, 2024 TIME: 10:45 AM PATIENT IDENTITY VERIFICATION COMPLETED USING TWO (2) IDENTIFIERS: Name and Date of confirmedby patient verbally. FALL SCREENING: Has the patient had 2 falls in the last year or 1 fall with injury or currently using an Ambulatory Assistive Device (Walker, Cane, Wheelchair, Crutches, etc.)? No PATIENT GENDER DATA: Assigned male at PATIENT RELEVANT IMPLANT DATA REVIEWED: Not Applicable PATIENT PRESENTS WITH AN IMPLANTABLE OR ATTACHED NUTRITION INTERNSHIP: No RADIOLOGY DEPARTMENT: General X-ray: Exam(s) Completed: Chest X-Ray PERIPHERAL IV DATA: Not applicable SIGNED BY: RT Shaw(Arsh) July 24, 2024 10:45 AM documented in [facility]25 NoteHNO ID: [id number] Author: SHERMAN GALLARDO RT(R) Service: Radiology Author Type: Technologist Type: Progress Notes Filed: 07/24/2024 10:51 Note Text: Radiology Service Progress Note PATIENT NAME: Wagner Hackett DATE OF SERVICE: July 24, 2024 TIME: 10:45 AM PATIENT IDENTITY VERIFICATION COMPLETED USING TWO (2) IDENTIFIERS: Name and Date of confirmed by patient verbally. FALL SCREENING: Has the patient had 2 falls in the last year or 1 fall with injury or currently using an Ambulatory Assistive Device (Walker, Cane, Wheelchair, Crutches, etc.)? No PATIENT GENDER DATA: Assigned male at PATIENT RELEVANT IMPLANT DATA REVIEWED: Not Applicable PATIENT PRESENTS WITH AN IMPLANTABLE OR ATTACHED NUTRITION INTERNSHIP: No RADIOLOGY DEPARTMENT: General X-ray: Exam(s) Completed: Chest X-Ray PERIPHERAL IV DATA: Not applicable SIGNED BY: RT Shaw(R) July 24, 2024 10:45 [facility]03-05-2025 NoteHNO ID: [id number] Author: ALO HURLEY APRN.[facility] Service: ? Author Type: Nurse Practitioner Type: Progress Notes Filed: 07/24/2024 11:06 Note Text: CC: Patient presents with: Cough: Cough and congestion x 4 days HPI: Wagner Hackett is a 69 year old male who presents to the office with complaint of chest congestion, head congestion, and cough, nonproductive for 4 days. Symptoms are staying the same. Associated symptoms includes fever and dyspnea. Denies nausea, vomiting , and diarrhea. Treatments tried include nothing so far. with no relief of symptoms. Sick contacts: unknown. History of asthma, frequent episodes of bronchitis, chronic bronchitis, bronchiectasis or COPD: No Smoker: No Seasonal/environmental allergies: No The ROS is otherwise negative. The patient's pmh, medications, allergies, and past visits are reviewed. PHYSICAL EXAM: BP 170/100 Pulse 94 Temp (!) 38 ?C (100.4 ?F) (Tympanic) Resp 16 Wt 107.6 kg (237 lb 3.4 oz) SpO2 95% General appearance: alert, cooperative, pleasant, in no acute distress Head: Normocephalic Eyes: EOM's intact, conjunctiva pink and moist, no icterus, sclera white, non-injected Ears: Right ear: External ear/canal- Normal, TM - clear with good landmarks. Left ear: External ear/canal- Normal, TM - clear with good landmarks Oropharynx:moist without lesions, No erythema, exudates or tonsillar hypertrophy. Heart: Negative. RRR without obvious murmur, gallop, or rubs. No ectopy. Lungs: wheezing right lower lobe PAST MEDICAL HISTORY Diagnosis Date Essential hypertension Lymphocytic colitis No past surgical history on file. ALLERGIES Patient has no known allergies. MEDICATIONS benzonatate (TESSALON PERLE) 100 mg capsule Take 2 capsules by mouth three times a day as needed. (Patient not taking: Reported on 07/24/2024) benzonatate (TESSALON PERLE) 100 mg capsule Take 2 capsules by mouth three times daily as needed. (Patient not taking: Reported on 03/26/2023) albuterol HFA (PROAIR HFA) 90 mcg/actuation inhaler Inhale 2 Puffs as instructed every 6 hours as needed. albuterol HFA (PROVENTIL HFA) 90 mcg/actuation inhaler Inhale 1-2 Puffs as instructed four times daily as needed for Wheezing/Shortness of Breath. (Patient not taking: Reported on 10/03/2022) aspirin 81 mg chewable tablet colestipol (COLESTID) 1 gram tablet (Patient not taking: Reported on 03/26/2023) hydroCHLOROthiazide (HYDRODIURIL, ESIDRIX) 25 mg tablet testosterone enanthate (XYOSTED) 100 mg/0.5 mL AutoInjector losartan (COZAAR) 100 mg tablet amLODIPine (NORVASC) 5 mg tablet ROSUVASTATIN CALCIUM (CRESTOR ORAL) Take by mouth. LOSARTAN POTASSIUM (LOSARTAN ORAL) Take by mouth. (Patient not taking: Reported on 03/26/2023) AMLODIPINE BESYLATE (AMLODIPINE ORAL) Take by mouth. (Patient not taking: Reported on 03/26/2023) No family history on file. Social History Tobacco Use Smoking status: Never Smokeless tobacco: Never ASSESSMENT/PLAN: 1. Acute cough - ICD9: 786.2, ICD10: R05.1 - XR CHEST 2V FRONTAL/LAT * * * * Physician Interpretation * * * * EXAMINATION: CHEST RADIOGRAPH (2 VIEW FRONTAL AND LATERAL) CLINICAL HISTORY: Acute cough MQ: XC2_6 EXAM DATE/TIME: 07/24/2024 10:50 AM COMPARISON: Chest x-ray on 03/31/2023 RESULT: Lines, tubes, and devices: None. Lungs and pleura: No consolidation. No lung mass. No pleural effusion. No pneumothorax. Cardiomediastinal silhouette: Stable cardiac silhouette, with tortuosity of the thoracic aorta. Bones and soft tissues: There are degenerative changes in the spine. IMPRESSION IMPRESSION: No acute radiographic abnormality. Peanut Roaster: GEORGE Transcribe Date/Time: Jul 24 2024 10:55A Dictated by : JOURDAN TRENT MD - BUDESONIDE 32 MCG/ACTUATION NASAL SPRAY - DEXTROMETHORPHAN-GUAIFENESIN 5 MG-100 MG/5 ML ORAL LIQUID Prescription instructions reviewed with patient as applicable. Potential red flag symptoms discussed with the patient. Reviewed appropriate action plan to take if red flag symptoms occur. Patient agreeable to treatment plan. Alo Hurley APRN.[facility]03-05-2025 History of Present illness Narrative* Alo Hurley APRN.[facility] - 07/24/2024 10:35 AM EST CC: Patient presents with: Cough: Cough and congestion x 4 days HPI: Wagner Hackett is a 69 year old male who presents to the office with complaint of chest congestion, head congestion, and cough, nonproductive for 4 days. Symptoms are staying the same. Associated symptoms includes fever and dyspnea. Denies nausea, vomiting , and diarrhea. Treatments tried include nothing so far. with no relief of symptoms. Sick contacts: unknown. History of asthma, frequent episodes of bronchitis, chronic bronchitis, bronchiectasis or COPD: No Smoker: No Seasonal/environmental allergies: No The ROS is otherwise negative. The patient's pmh, medications, allergies, and past visits are reviewed. PHYSICAL EXAM: BP 170/100 Pulse 94 Temp (!) 38 C (100.4 F) (Tympanic) Resp 16 Wt 107.6 kg (237 lb 3.4 oz) SpO2 95% General appearance: alert, cooperative, pleasant, in no acute distress Head: Normocephalic Eyes: EOM's intact, conjunctiva pink and moist, no icterus, sclera white, non-injected Ears: Right ear: External ear/canal- Normal, TM - clear with good landmarks. Left ear: External ear/canal- Normal, TM - clear with good landmarks Oropharynx:moist without lesions, No erythema, exudates or tonsillar hypertrophy. Heart: Negative. RRR without obvious murmur, gallop, or rubs. No ectopy. Lungs: wheezing right lower lobe PAST MEDICAL HISTORY Diagnosis Date Essential hypertension Lymphocytic colitis No past surgical history on file. ALLERGIES Patient has no known allergies. MEDICATIONS benzonatate (TESSALON PERLE) 100 mg capsule Take 2 capsules by mouth three times a day as needed. (Patient not taking: Reported on 07/24/2024) benzonatate (TESSALON PERLE) 100 mg capsule Take 2 capsules by mouth three times daily as needed. (Patient not taking: Reported on 03/26/2023) albuterol HFA (PROAIR HFA) 90 mcg/actuation inhaler Inhale 2 Puffs as instructed every 6 hours as needed. albuterol HFA (PROVENTIL HFA) 90 mcg/actuation inhaler Inhale 1-2 Puffs as instructed four times daily as needed for Wheezing/Shortness of Breath. (Patient not taking: Reported on 10/03/2022) aspirin 81 mg chewable tablet colestipol (COLESTID) 1 gram tablet (Patient not taking: Reported on 03/26/2023) hydroCHLOROthiazide (HYDRODIURIL, ESIDRIX) 25 mg tablet testosterone enanthate (XYOSTED) 100 mg/0.5 mL AutoInjector losartan (COZAAR) 100 mg tablet amLODIPine (NORVASC) 5 mg tablet ROSUVASTATIN CALCIUM (CRESTOR ORAL) Take by mouth. LOSARTAN POTASSIUM (LOSARTAN ORAL) Take by mouth. (Patient not taking: Reported on 03/26/2023) AMLODIPINE BESYLATE (AMLODIPINE ORAL) Take by mouth. (Patient not taking: Reported on 03/26/2023) No family history on file. Social History Tobacco Use Smoking status: Never Smokeless tobacco: Never ASSESSMENT/PLAN: 1. Acute cough - ICD9: 786.2, ICD10: R05.1 - XR CHEST 2V FRONTAL/LAT * * * * Physician Interpretation * * * * EXAMINATION: CHEST RADIOGRAPH (2 VIEW FRONTAL & LATERAL) CLINICAL HISTORY: Acute cough MQ: XC2_6 EXAM DATE/TIME: 07/24/2024 10:50 AM COMPARISON: Chest x-ray on 03/31/2023 RESULT: Lines, tubes, and devices: None. Lungs and pleura: No consolidation. No lung mass. No pleural effusion. No pneumothorax. Cardiomediastinal silhouette: Stable cardiac silhouette, with tortuosity of the thoracic aorta. Bones and soft tissues: There are degenerative changes in the spine. IMPRESSION IMPRESSION: No acute radiographic abnormality. Peanut Roaster: GEORGE Transcribe Date/Time: Jul 24 2024 10:55A Dictated by : JOURDAN TRENT MD - BUDESONIDE 32 MCG/ACTUATION NASAL SPRAY - DEXTROMETHORPHAN-GUAIFENESIN 5 MG-100 MG/5 ML ORAL LIQUID Prescription instructions reviewed with patient as applicable. Potential red flag symptoms discussed with the patient. Reviewed appropriate action plan to take if red flag symptoms occur. Patient agreeable to treatment plan. Alo Hurley APRN.CNP documented [facility] encounter[facility] Evaluation note* Diagnosis Onset Date Resolution Status Admit Date RAFAELA (obstructive sleep apnea) acute July 12 1:42pm Hypertension chronic June 1:42pm Sleep concern noneactive July 122024 1:42pm [facility] Work Phone: 1(428) 181-375111-10-2023 History of Present illness Narrative* Alaan Woodson RT(R) - 03/31/2023 10:50 AM EST Radiology Service Progress Note PATIENT NAME: Wagner Hackett DATE OF SERVICE: March 31, 2023 TIME: 10:45 AM PATIENT IDENTITY VERIFICATION COMPLETED USING TWO (2) IDENTIFIERS: Name and Date of confirmedby patient verbally. FALL SCREENING: Has the patient had 2 falls in the last year or 1 fall with injury or currently using an Ambulatory Assistive Device (Walker, Cane, Wheelchair, Crutches, etc.)? No PATIENT GENDER DATA: Male PATIENT RELEVANT IMPLANT DATA REVIEWED: Yes RADIOLOGY DEPARTMENT: General X-ray: Exam(s) Completed: Rib X-Ray: Right PERIPHERAL IV DATA: Not applicable SIGNED BY: RT Nghia(R) March 31, 2023 10:45 AM documented in this encounterDel[facility]05-15-2023 History of Present illness Narrative* Sherman Gallardo RT(R) - 10/03/2022 2:20 PM EDT Radiology Service Progress Note PATIENT NAME: Wagner Hackett DATE OF SERVICE: October 03, 2022 TIME: 2:14 PM PATIENT IDENTITY VERIFICATION COMPLETED USING TWO (2) IDENTIFIERS: Name and Date of confirmedby patient verbally. FALL SCREENING: Has the patient had 2 falls in the last year or 1 fall with injury or currently using an Ambulatory Assistive Device (Walker, Cane, Wheelchair, Crutches, etc.)? No PATIENT GENDER DATA: Male PATIENT RELEVANT IMPLANT DATA REVIEWED: Not Applicable RADIOLOGY DEPARTMENT: General X-ray: Exam(s) Completed: Chest X-Ray PERIPHERAL IV DATA: Not applicable SIGNED BY: RT Shaw(R) October 03, 2022 2:14 PM documented in this encounterDelaware [facility]05-15-2023 History of Present illness Narrative* Dennis Sinclair MD - 10/03/2022 1:57 PM EDT Patient presents with: Chest Congestion: cough,fatigue, low grade fever, bodyaches x 10 days HPI: Feeling sick for 10 days; cough started 1 week ago. Positive symptoms: Cough, chills, Fever, Body Aches, Malaise, Fatigue, slight Wheezing, Diarrhea, nasal congestion Negative symptoms: Sore throat, Nausea, Vomiting, Chest pain, rhinorrhea, sinus pressure OTC: Mucinex, Ibuprofen, imodium Home COVID tests negative x 2 1 week ago. PAST MEDICAL HISTORY Diagnosis Date Essential hypertension Lymphocytic colitis MEDICATIONS: Current Outpatient Medications Medication Sig aspirin 81 mg chewable tablet colestipol (COLESTID) 1 gram tablet hydroCHLOROthiazide (HYDRODIURIL, ESIDRIX) 25 mg tablet testosterone enanthate (XYOSTED) 100 mg/0.5 mL AutoInjector losartan (COZAAR) 100 mg tablet amLODIPine (NORVASC) 5 mg tablet ROSUVASTATIN CALCIUM (CRESTOR ORAL) Take by mouth. LOSARTAN POTASSIUM (LOSARTAN ORAL) Take by mouth. AMLODIPINE BESYLATE (AMLODIPINE ORAL) Take by mouth. albuterol HFA (PROVENTIL HFA) 90 mcg/actuation inhaler Inhale 1-2 Puffs as instructed four times daily as needed for Wheezing/Shortness of Breath. (Patient not taking: Reported on 10/03/2022) No current facility-administered medications for this visit. ALLERGIES: ALLERGIES No Known Allergies VITALS: BP 132/76 Pulse 98 Temp 36.2 C (97.2 F) Resp 16 Wt 110.2 kg (243 lb) SpO2 95% PHYSICAL EXAM: GEN: pleasant, mildly ill appearing HEENT: PERRL, EOMI, conjunctiva clear Ears: canals occluded by cerumen Sinuses: non-tender frontal sinus, non-tender maxillary sinuses Throat: moist mucous membranes, no erythema, no exudate Neck: supple, no thyromegaly, no lymphadenopathy HEART: regular rate and rhythm, no murmurs LUNGS: fine left lower lung field crackles, no increased WOB ASSESSMENT/PLAN: 1. Acute cough - ICD9: 786.2, ICD10: R05.1 - XR CHEST 2V FRONTAL/LAT - no acute findings. Treat potential left lower lung pneumonia with - DOXYCYCLINE MONOHYDRATE 100 MG CAPSULE, may discontinue if COVID positive. - 2019 CORONAVIRUS Dennis Sinclair MD documented in this encounterDelaware [facility] Hospital01-29-2021 History of Present illness Narrative* Sherman Gallardo (Rt), Tech - 06/19/2020 1:00 PM EST Radiology Service Progress Note PATIENT NAME: Wagner Hackett DATE OF SERVICE: June 19, 2020 TIME: 12:59 PM PATIENT IDENTITY VERIFICATION COMPLETED USING TWO (2) IDENTIFIERS: Name and Date of confirmedby patient verbally. FALL SCREENING: Has the patient had 2 falls in the last year or 1 fall with injury or currently using an Ambulatory Assistive Device (Walker, Cane, Wheelchair, Crutches, etc.)? No PATIENT GENDER DATA: Male PATIENT RELEVANT IMPLANT DATA REVIEWED: Not Applicable RADIOLOGY DEPARTMENT: General X-ray: Exam(s) Completed: Chest X-Ray PERIPHERAL IV DATA: Not applicable SIGNED BY: RT Shaw June 19, 2020 12:59 PM documented in this encounterDelaware [facility] HospitalEvaluation noteNo assessment information availableWooster Community Hospital Work Phone: Evaluation note* Diagnosis Acute cough- Primary documented in this encounter [facility] note* Diagnosis Acute cough documented in this encounter [facility] note* Diagnosis Cough documented in this encounter [facility] note* Diagnosis Acute cough- Primary Acute cough documented in this encounter [facility] note* Diagnosis Acute cough documented in this encounter [facility] note* Diagnosis Onset Date Resolution Status Admit Date RAFAELA (obstructive sleep apnea) acute November 12, 2024 12:48pm Hypertension chronic November 12 025 12:48pm Sleep concern noneactive November 12, 2024 12:48pm [facility] Work Phone: Reason for referral (narrative)No reason for referral information availableWOur Lady of Mercy [facility] Work Phone: Reason for visit Narrative* Diagnostic Procedure Only (Urgent) - Closed Specialty Diagnoses / Procedures Referred By Contac t Referred To Contact XR IMAGING Diagnoses Rib pain on right side Procedures XR RIBS/CHEST 3V AP RIB/OBLS/CXR RIGHT RADEX RIBS UNI W/POSTEROANT CH MINIMUM 3 VIEWS Jair Culver APRN.[facility] [address] [place] [address] [place] [address] Referral ID Status Reason Start Date Expiration Date V isits Requested Visits Authorized [id number] Closed Auto-Generate d Referral 03/31/2023 04/29/2024 1 1 [facility] Reason for Referral Status Reason Specialty Diagnoses / Procedures Referred By Contact Referred To Contact Pending Review Short Stay Unit Diagnoses COVID-19 [facility] [address] [facility] [address] [address] [facility] Short Stay [address] [address] Status Reason Specialty Diagnoses / Procedures Referred By Contact Referred To Contact Closed Short Stay Unit Diagnoses COVID-19 Akbar Ayala MD [address] [address] [facility] Short Stay [address] [place] [address] [address] [place] [address] Assessments Diagnosis COVID-19- Primary Diagnosis COVID-19 Advance Directives No Advanced Directives Records FoundDocuments on File Type Date Recorded Patient Supermarket Manager Expl anation Advance Directives and Kade rangel Will 06/19/2020 2:21 PM Summary Purpose Family History No Family History Records Found Relationship Condition Age at Onset Recorded Date/T melissa mother Heart failure Unknown father Cardiac disease Unknown brother Hypertension Unknown Chief Complaint and Reason for Visit Chief Complaint PSA Chief Complaint Admit Date Sleep problems July 12, 2024 1:42pm uncontrolled hypertension, dry mouth Aug 8:01pm Reason for Visit Admit Date RAFAELA (obstructive sleep apnea) June 232024 1:42pm Hypertension July 12, 2024 1:42pm Sleep concern July 12, 2024 1:42pm Chief Complaint Admit Date uncontrolled hypertension, dry mouth Aug 8:01pm 10 WK FU November 12, 2024 12:4 8pm Reason for Visit Admit Date RAFAELA (obstructive sleep apnea) November 12, 2024 12:48pm Hypertension November 12, 2024 12:4 8pm Sleep concern November 12, 2024 12:4 8pm Reason for Visit Admit Date RAFAELA (obstructive sleep apnea) November 12, 2024 12:48pm Hypertension November 12, 2024 12:4 8pm Additional Source Comments (unrecognized sect ion and content) No Status Records FoundNo Status Records FoundNo Status Records FoundNo Status Records FoundNo Status Records Found INFORMATION SOURCE (unrecogn ized section and content) DATE CREATED AUTHOR 06/22/2020 [facility] DATE CREATED AUTHOR AUTHOR'S ORGANIZ ATION 04/27/2022 [facility] DATE CREATED AUTHOR AUTHOR'S ORGANIZ ATION 07/26/2024 [facility] DATE CREATED AUTHOR AUTHOR'S ORGANIZ ATION 01/02/2025 [facility] DATE CREATED AUTHOR AUTHOR'S ORGANIZ ATION [facility] Goals (unrecognized section and content) Goals may be documented in a n alternate sectionGoals may be documented in an alternate sectionGoals may be documented in an alternate sectionGoals may be documented in an alternate sectionGoals may be documented in an alternate sectionGoals may be documented in an alternate section Care Teams (unrecognized sec tion and content) Team Status: Active Member Role Status Dates XAVI DE LA CRUZ Primary Care Provider Active Team Status: Inactive Member Role Status Dates DOROTHY HURLEY Primary Care Provider Active CHERI JIMENEZ Attending Provider, Referring Provider Ac tive Glass Silverer Relationship Specialty Start Date End Date Venango (Ms), Jerson PCP - General 05/17/17 Glass Silverer Relationship Specialty Start Date End Date Venango (Ms), Jerson PCP - General 05/17/17 Team Status: Inactive Member Role Status Dates DOROTHY HURLEY Primary Care Provider Active CHERI CHOI Attending Provider, Referring Provider A ctive Glass Silverer Relationship Specialty Start Date End Date Venango (Ms), Jerson PCP - General 05/17/17 Glass Silverer Relationship Specialty Start Date End Date Venango (Ms), Jerson PCP - General 05/17/17 Glass Silverer Relationship Specialty Start Date End Date Venango, Jerson PCP - General 05/17/17 Glass Silverer Relationship Specialty Start Date End Date Venango, Jerson PCP - General 05/17/17 Glass Silverer Relationship Specialty Start Date End Date Venango, Jerson PCP - General 05/17/17 Team Status: Active Member Role Status Dates No Primary Care Physician Primary Care Provider Active Team Status: Inactive Member Role Status Dates CHERI CHOI Attending Provider Active Start: J anuary 2024 End: May 29, 2024 CHERI CHOI Referring Provider Active Start: J anuary 2024 End: May 29, 2024 DOROTHY HURLEY Primary Care Provider Active Start : May 29, 2024 End: May 29, 2024 Team Status: Inactive Member Role Status Dates EVELIA Rueda Attending Provider Active Start: July 12, 2024 End: July 12, 2024 Team Status: Inactive Member Role Status Dates EVELIA Rueda Attending Provider Active Start: August 20, 2024 End: August 20, 2024 EVELIA Rueda Referring Provider Active Start: August 20, 2024 End: August 20, 2024 No Primary Care Physician Primary Care Provider Active Start: August 20, 2024 End: August 20, 2024 Team Status: Inactive Member Role Status Dates EVELIA Rueda Attending Provider Active Start: November 12, 2024 End: November 12, 2024 No Primary Care Physician Primary Care Provider Active Start: November 12, 2024 End: November 12, 2024 No Primary Care Physician Referring Provider Active Start: November 12, 2024 End: November 12, 2024 Team Status: Active Member Role/Relationship Status Dates No Primary Care Physician Primary Care Provider Active Team Status: Inactive Member Role/Relationship Status Dates EVELIA Rueda Attending Provider Active Start: August 20, 2024 End: August 20, 2024 EVELIA Rueda Referring Provider Active Start: August 20, 2024 End: August 20, 2024 No Primary Care Physician Primary Care Provider Active Start: August 20, 2024 End: August 20, 2024 Team Status: Inactive Member Role/Relationship Status Dates EVELIA Rueda Attending Provider Active Start: November 12, 2024 End: November 12, 2024 No Primary Care Physician Primary Care Provider Active Start: November 12, 2024 End: November 12, 2024 No Primary Care Physician Referring Provider Active Start: November 12, 2024 End: November 12, 2024 Team Status: Inactive Member Role/Relationship Status Dates CHERI CHOI Attending Provider Active Start: 2024 End: December 04, 2024 CHERI CHOI Referring Provider Active Start: 2024 End: December 04, 2024 No Primary Care Physician Primary Care Provider Active Start: December 04, 2024 End: December 04, 2024 Source Comments (unrecognize d section and content) In the event this informatio n is protected by the Federal Confidentiality of Alcohol and Drug Abuse Patient Records regulations: The Federal rules restrict any use of the information to criminally investigate or prosecute any alcohol or drug abuse patient.[facility] the event this information is protected by the Federal Confidentiality of Alcohol and Drug Abuse Patient Records regulations: The Federal rules restrict any use of the information to criminally investigate or prosecute any alcohol or drug abuse patient.[facility] the event this information is protected by the Federal Confidentiality of Alcohol and Drug Abuse Patient Records regulations: The Federal rules restrict any use of the information to criminally investigate or prosecute any alcohol or drug abuse patient.[facility] the event this information is protected by the Federal Confidentiality of Alcohol and Drug Abuse Patient Records regulations: The Federal rules restrict any use of the information to criminally investigate or prosecute any alcohol or drug abuse patient.[facility] the event this information is protected by the Federal Confidentiality of Alcohol and Drug Abuse Patient Records regulations: The Federal rules restrict any use of the information to criminally investigate or prosecute any alcohol or drug abuse patient.[facility] the event this information is protected by the Federal Confidentiality of Alcohol and Drug Abuse Patient Records regulations: The Federal rules restrict any use of the information to criminally investigate or prosecute any alcohol or drug abuse patient.[facility] the event this information is protected by the Federal Confidentiality of Alcohol and Drug Abuse Patient Records regulations: The Federal rules restrict any use of the information to criminally investigate or prosecute any alcohol or drug abuse patient.[facility] Reason for Visit (unrecogniz ed section and content) Reason Comments Chest Congestion cough,fatigue, low g rade fever, bodyaches x 10 days Reason Comments Refill Request Reason Comments Cough Cough and congestion x 4 days FOR RECORDS PERTAINING TO PATIENTS WHO ARE OR HAVE BEEN ENROLLED IN A CHEMICAL DEPENDENCY/SUBSTANCEABUSE PROGRAM, SOME INFORMATION MAY BE OMITTED. This clinical summary was aggregated from multiple sources. Caution should be exercised in using it in the provision of clinical care. This summary normalizes information from multiple sources, and as a consequence, information in this document may materially change the coding, format and clinical context of patient data. In addition, data may be omitted in some cases. CLINICAL DECISIONS SHOULD BE BASED ON THE PRIMARY CLINICAL RECORDS. [employer] [facility]. provides no warranty or guarantee of the accuracy or completeness of information in this document.
== END | disposition home or self-care (01) ==
LOC: CVS 13:51
DX: R01.1 Cardiac murmur, unspecified (principal)
CPT/HCPCS: 93306